=== PATIENT | female | born 1990 ===

== ENCOUNTER 2022-02-02 13:41 | Emergency (ER) | payer OTHER, MEDICAID, SELFPAY ==
[2022-02-02 16:19] VITALS: BP 109/55; PULSE 58; RESP 18; TEMP 36.4; O2SAT 100; BMI 27.3
[2022-02-02 17:10] LABS: UPreg QC Valid YES; Urine Pregnancy POSITIVE (NEGATIVE)
[2022-02-02 17:11] LABS: Appearance Urine Clear; Color Urine Yellow; Glucose Urine UA Negative (Negative); Leukocyte Esterase Urine Trace (Negative); Nitrite Urine Positive (Negative); UMIC TRIGGER UACC YES; Urine Blood Negative (Negative); Urine Ketones Negative (Negative); Urine Protein Negative (Neg-Trace)
[2022-02-02 17:13] LABS: Bacteria Urine 4+ (None Seen); Hyaline Casts Urine 0-2 /LPF (0-2); RBC Urine 0-2 /HPF (0-2); Squamous Epithelial Cell Urine 0-2 /HPF (0-2); UACC Culture Trigger YES; WBC Urine 0-5 /HPF (0-5)
== END 2022-02-03 00:55 | disposition left against medical advice (07) ==
PROVIDERS: Emergency Provider Emergency Medicine
DX: O26.891 Other specified pregnancy related conditions, first trimester (principal); R10.9 Unspecified abdominal pain; O23.41 Unspecified infection of urinary tract in pregnancy, first trimester; N39.0 Urinary tract infection, site not specified; B96.20 Unspecified Escherichia coli [E. coli] as the cause of diseases classified elsewhere; Z3A.01 Less than 8 weeks gestation of pregnancy
CPT/HCPCS: 81001; 81025; 87086; 87088; 87186; 99282

== ENCOUNTER 2022-06-19 14:04 | Emergency (ER) | payer OTHER, SELFPAY ==
--- NOTE | ~2022-06-19 | CT_ITS ---
EXAMINATION: CT FACIAL BONES WITH CONTRAST CLINICAL INFORMATION: Right nose question abscess question right orbital cellulitis COMPARISON: None TECHNIQUE: Axial images were obtained through the facial bones following the intravenous administration of 85 mL Omnipaque 350. Coronal and sagittal reconstructed images were generated. This CT examination was performed using dose optimization techniques as appropriate, variously including the following: *Automated exposure control *Adjustment of mA and/or kV according to patient size (this includes techniques or standardized protocols for targeted exams where dose is matched to indication/reason for exam; i.e. extremities or head) *Use of iterative reconstruction technique DLP: 435 mGy-cm FINDINGS: There is a small area of superficial nodular soft tissue thickening with rim enhancement in the subdermal soft tissues along the right aspect of the nose measuring approximately 0.8 x 0.5 x 0.6 cm in size. Finding is not entirely specific and could represent a inflamed sebaceous or epidermal inclusion cyst versus a very tiny abscess or developing abscess. No gas within the collection. There is mild adjacent soft tissue thickening and dermal enhancement consistent with inflammation. Globes and retro-orbital structures are intact. No appreciable preseptal inflammatory fat stranding. No postseptal inflammatory change. Major salivary glands and visualized thyroid gland are unremarkable. No cervical lymphadenopathy. Visualized carotid arteries and jugular veins enhance normally. Visualized intracranial contents grossly unremarkable, limited assessment. No acute facial bone fracture. Unerupted teeth in the maxilla noted. Periapical lucency surrounding the roots of the left second premolar and first molar tooth consistent with endodontal disease. Normal alignment of the TMJs. Trace mucosal thickening along the floor the left maxillary antrum. Paranasal sinuses otherwise normally aerated. Mastoid air cells and middle ear cavities normally aerated. CT/CT facial bones w IV con IMPRESSION: 1. Small 0.8 x 0.5 x 0.6 cm nodular focus of soft tissue thickening with rim enhancement along the right aspect of the nose. Finding is not not entirely specific and could represent a inflamed sebaceous or epidermal inclusion cyst versus a very small abscess or developing abscess. No gas within the collection. Mild surrounding soft tissue inflammation. Correlate with evidence of cellulitis on exam. 2. No CT evidence of preseptal or postseptal orbital cellulitis. 3. Periapical lucency surrounding the roots of the left second premolar and first molar teeth consistent with endodontal disease.
--- NOTE | 2022-06-19 14:28 | ED.GENADULT ---
HPI - General Adult General Chief complaint: General Medical <MICHI Grider Last Filed: 06/19/22 14:32> Stated complaint: periobital edema r eye <MICHI Grider Last Filed: 06/19/22 14:32> Time Seen by Provider: 06/19/22 16:05 <MICHI Grider Last Filed: 06/19/22 14:32> Source: patient <MICHI Calero Last Filed: 06/19/22 19:14> Mode of arrival: ambulatory <MICHI Calero Last Filed: 06/19/22 19:14> History of Present Illness HPI narrative: 32-year-old female with a past medical history of right-sided periorbital cellulitis treated with Doxycycline x5 days and Naproxen on 06/13/22 presenting to the ED complaining of persistent swelling and right-sided nasal tenderness. Patient reports compliance with previously prescribed antibiotics. Reports associated chills. Denies fever, drainage from area, pointing, epistaxis, ear pain, sore throat. Patient was seen at [facility] prior to arrival in to ED for further workup <MICHI Calero Last Filed: 06/19/22 19:14> Onset (ago): day(s) <MICHI Calero Last Filed: 06/19/22 19:14> Related Data Allergies/adverse reactions: Allergies Allergy/AdvReac Type Severity Reaction Status Date / Time No Known Allergies Allergy Verified 02/02/22 16:17 <MICHI Grider Last Filed: 06/19/22 14:32> Review of Systems Review of Systems: Constitutional: No Fever, No Chills ENT/Mouth: No Ear Pain, + Nasal Congestion, + Nasal Pain, No Hoarseness, No sore throat, No Rhinorrhea, No Swallowing Difficulty Cardiovascular: No Chest Pain, No SOB Respiratory: No Cough, No Sputum Gastrointestinal: No Nausea, No Vomiting, No Diarrhea, No Constipation, No Abdominal pain Musculoskeletal: No joint pain, No Myalgias, No Joint Swelling Skin: +Skin Lesions, No rash Neuro: No Weakness, No Numbness, No Paresthesias <MICHI Calero Last Filed: 06/19/22 19:14> Yes all other systems are reviewed and are negative <MICHI Calero - Last Filed: 06/19/22 19:14> Constitutional: Constitutional: Reports as per HPI <MICHI Calero - Last Filed: 06/19/22 19:14> [facility] Past Medical History Attestation statement: The following information was validated with the patient. <MICHI Calero - Last Filed: 06/19/22 19:14> Social History Social History: Social History Advance Directives: No Advance Directives Information Provided: Yes <MICHI Grider - Last Filed: 06/19/22 14:32> Physical Exam ED Vital Signs: Vital Signs - 24 hr 06/19/22 14:29 06/19/22 19:00 Temperature 96.7 F L 98.3 F Pulse Rate 58 62 Respiratory Rate 17 18 Blood Pressure 120/73 125/74 Pulse Oximetry 100 98 Oxygen Delivery Method Room Air Room Air BMI result Body Mass Index 26.7 <MICHI Grider - Last Filed: 06/19/22 14:32> Vital Signs - 24 hr 06/19/22 14:29 06/19/22 19:00 Temperature 96.7 F L 98.3 F Pulse Rate 58 62 Respiratory Rate 17 18 Blood Pressure 120/73 125/74 Pulse Oximetry 100 98 Oxygen Delivery Method Room Air Room Air BMI result Body Mass Index 26.7 <MICHI Calero - Last Filed: 06/19/22 19:14> Const General: cooperative, healthy appearing and no acute distress <MICHI Calero - Last Filed: 06/19/22 19:14> Orientation/consciousness: patient oriented x3 <MICHI Calero - Last Filed: 06/19/22 19:14> Limitations: no limitations <MICHI Calero - Last Filed: 06/19/22 19:14> HENMT Other: + small indurated abscesses noted to right side of nare with +ttp, no pointing, no erythema, no fluctuance. No intransal involvement. <MICHI Calero Last Filed: 06/19/22 19:14> Head: Yes normal to inspection and Yes atraumatic <Lala Solis [place] - Last Filed: 06/19/22 19:14> Ears: hearing grossly normal bilaterally and TM's normal bilaterally <Lala Solis [place] - Last Filed: 06/19/22 19:14> General nose exam: Normal septum present, no nasal discharge noted and no epistaxis <Lala Solis [facility] Last Filed: 06/19/22 19:14> Face and sinus: Yes normal facial exam <Lala Solis [facility] Last Filed: 06/19/22 19:14> Throat: Yes posterior oropharynx normal, Yes tonsils normal, Yes uvula midline, No peritonsillar mass, No uvula laterally displaced and No uvular edema <Lala Solis [place] - Last Filed: 06/19/22 19:14> Eyes Other: EOMI w/o pain <MICHI Calero - Last Filed: 06/19/22 19:14> General: appearance normal, both eyes and all related structures <Lala Solis [facility] Last Filed: 06/19/22 19:14> Conjunctivae: conjunctivae normal <Lala Solis [facility] Last Filed: 06/19/22 19:14> Sclerae: sclerae normal <Lala Solis [place] - Last Filed: 06/19/22 19:14> Pupils: Equal, round and reactive pupils present <MICHI Calero Last Filed: 06/19/22 19:14> EOM: EOMs intact bilaterally <MICHI Calero Last Filed: 06/19/22 19:14> Direct Ophthalmoscopy: normal light reflex <MICHI Calero Last Filed: 06/19/22 19:14> Neck Neck: Yes normal visual inspection, Yes no lymphadenopathy and Yes no meningeal signs <MICHI Calero Last Filed: 06/19/22 19:14> Resp Effort & Inspection: normal respiratory effort, not labored and no respiratory distress <MICHI Calero Last Filed: 06/19/22 19:14> Cardio Rate: regular rate <MICHI Calero - Last Filed: 06/19/22 19:14> Heart sounds: S1 normal heart sound present and S2 normal heart sound present <MICHI Calero - Last Filed: 06/19/22 19:14> GI Inspection: Yes normal to inspection <MICHI Calero - Last Filed: 06/19/22 19:14> Skin Rashes: no rashes <MICHI Calero - Last Filed: 06/19/22 19:14> Wounds: no wounds <MICHI Calero - Last Filed: 06/19/22 19:14> Neuro General: patient oriented x3, tone normal and no meningeal signs <MICHI Calreo - Last Filed: 06/19/22 19:14> Cranial nerves: Yes Equal, round and reactive pupils present <MICHI Calero - Last Filed: 06/19/22 19:14> Gait exam (Neuro): Normal gait present <MICHI Calero - Last Filed: 06/19/22 19:14> Extrem General: Yes normal to inspection <MICHI Calero - Last Filed: 06/19/22 19:14> Course Course Course Narrative: This is an RME: Additional HPI, ROS, PE not included below will be deferred to primary provider. 32-year-old female presenting with swelling to the right side of her nose since June 13 patient tells me this started off as a pimple, she popped it, since then has been having significant pain, swelling, she tells me it use to be localized to the right side of her face now improving however still significant pain and discomfort. Patient has images on her phone she shared with me. Physical examination there is a raised area to the right lateral aspect of nose that is tender to palpation, no fluctuance noted. Slight swelling to the right orbit. No pain with extraocular movements. Plan at this time is to obtain basic labs, blood cultures, lactic acid, CT of the facial bones with IV contrast to rule out abscess. <MICHI Grider - Last Filed: 06/19/22 14:32> This is an RME: Additional HPI, ROS, PE not included below will be deferred to primary provider. 32-year-old female presenting with swelling to the right side of her nose since June 13 patient tells me this started off as a pimple, she popped it, since then has been having significant pain, swelling, she tells me it use to be localized to the right side of her face now improving however still significant pain and discomfort. Patient has images on her phone she shared with me. Physical examination there is a raised area to the right lateral aspect of nose that is tender to palpation, no fluctuance noted. Slight swelling to the right orbit. No pain with extraocular movements. Plan at this time is to obtain basic labs, blood cultures, lactic acid, CT of the facial bones with IV contrast to rule out abscess. -1819-- no leukocytosis. Labs otherwise reassuring. COVID-19 negative. -1913--CT facial bones w IV con IMPRESSION: 1.? Small 0.8 x 0.5 x 0.6 cm nodular focus of soft tissue thickening with rim enhancement along the right aspect of the nose. Finding is not not entirely specific and could represent a inflamed sebaceous or epidermal inclusion cyst versus a very small abscess or developing abscess. No gas within the collection. Mild surrounding soft tissue inflammation. Correlate with evidence of cellulitis on exam. 2.? No CT evidence of preseptal or postseptal orbital cellulitis. 3.? Periapical lucency surrounding the roots of the left second premolar and first molar teeth consistent with endodontal disease. >> Will discharge patient home with Bactrim / Keflex and close dermatology/PCP follow-up. <MICHI Calero - Last Filed: 06/19/22 19:14> Medications Administered Discontinued Medications Generic Name Dose Route Start Last Admin Trade Name Alfonso PRN Reason Stop Dose Admin Sodium Chloride 500 mls @ 999 mls/hr 06/19/22 18:30 06/19/22 19:05 Ns IV 06/19/22 19:00 999 mls/hr .Q31M SALLY Administration Iohexol 100 ml 06/19/22 18:33 06/19/22 18:33 Iohexol 350 Mg/Ml 100 Ml Infus..Btl IV 06/19/22 18:34 85 ml ONCE ONE Administration Ketorolac Tromethamine 15 mg 06/19/22 17:55 06/19/22 18:17 Ketorolac Tromethamine 15 Mg/Ml Vial IVPUSH 06/19/22 17:56 15 mg ONCE ONE Administration <MICHI Grider - Last Filed: 06/19/22 14:32> Medications Administered Discontinued Medications Generic Name Dose Route Start Last Admin Trade Name Alfonso PRN Reason Stop Dose Admin Sodium Chloride 500 mls @ 999 mls/hr 06/19/22 18:30 06/19/22 19:05 Ns IV 06/19/22 19:00 999 mls/hr .Q31M SALLY Administration Iohexol 100 ml 06/19/22 18:33 06/19/22 18:33 Iohexol 350 Mg/Ml 100 Ml Infus..Btl IV 06/19/22 18:34 85 ml ONCE ONE Administration Ketorolac Tromethamine 15 mg 06/19/22 17:55 06/19/22 18:17 Ketorolac Tromethamine 15 Mg/Ml Vial IVPUSH 06/19/22 17:56 15 mg ONCE ONE Administration <MICHI Calero - Last Filed: 06/19/22 19:14> Medical Decision Making Medical Decision Making MDM Narrative: 32-year-old female with a past medical history of right-sided periorbital cellulitis treated with Doxycycline x5 days and Naproxen on 06/13/22 presenting to the ED complaining of persistent swelling and right-sided nasal tenderness. on exam vital signs stable, NAD/ nontoxic-appearing, physical exam as noted above with indurated tender area to right-sided near. No appreciable ocular, otic or intraoral involvement. Concern for indurated abscesses/underlying infection. Rule out deeper infection/cellulitis or tracking edema. Low suspicion for periorbital / orbital cellulitis plan: Labs, lactic/ blood cultures, UA, CT facial bones with IV contrast, re-evaluate Please refer to course for remaining clinical decision making, interpretation of labs/imaging results, and discussions with consultants and/or family members. <MICHI Calero Last Filed: 06/19/22 19:14> Differential Diagnosis Differential Diagnoses: The differential diagnosis associated with the presentation includes <MICHI Calero - Last Filed: 06/19/22 19:14> as above <MICHI Calero Last Filed: 06/19/22 19:14> Admission/Observation Consideration of admission/observation: Escalation of care including admission/observation considered <MICHI Calero - Last Filed: 06/19/22 19:14> Lab Data MDM Lab Attestation statement: I reviewed the patient's lab results. <MICHI Calero - Last Filed: 06/19/22 19:14> Result Diagrams: 06/19/22 16:55 06/19/22 16:55 <MICHI Grider - Last Filed: 06/19/22 14:32> Labs: Lab Results 06/19/22 06/19/22 06/19/22 Range/Units 16:36 16:55 16:55 WBC 7.1 (4.8-10.8) X10*3/uL RBC 4.68 (4.20-5.50) X10*6/uL Hgb 13.7 (12.0-16.0) g/dl Hct 42.9 (37.0-47.0) % MCV 91.7 (80.0-98.0) fL MCH 29.3 (27.0-33.0) pg MCHC 31.9 (31.0-35.0) g/dl RDW 13.3 (11.0-16.0) % Plt Count 238 (160-400) X10*3/uL MPV 9.9 (9.4-12.3) fL Immature Gran % (Auto) 0.3 (0.0-0.4) % Neut % (Auto) 69.6 (45-73) % Lymph % (Auto) 22.9 (20-40) % Dickinson % (Auto) 6.1 (2-11) % Eos % (Auto) 0.8 (0-4) % Baso % (Auto) 0.3 (0-2) % Lymph # (Auto) 1.6 (1.2-4.9) X10*3/uL Dickinson # (Auto) 0.4 (0.1-1.2) X10*3/uL Eos # (Auto) 0.1 (0.0-0.4) X10*3/uL Baso # (Auto) 0.0 (0.0-0.2) X10*3/uL Abs Immat Gran (auto) 0.02 (0.00-0.03) X10*3/uL Absolute Neuts (auto) 4.9 (2.0-8.3) x10*3/uL Absolute Nucleated RBC 0.000 (0.0-0.012) X10*3/uL Nucleated RBC % (auto) 0.0 (0.0-0.2) /100WBC Sodium (135-145) mmol/L Potassium (3.3-5.1) mmol/L Chloride (96-108) mmol/L Carbon Dioxide (22-29) mmol/L Anion Gap (12-20) BUN (9-16) mg/dL Creatinine (0.5-1.4) mg/dL Estim Creat Clear Calc Estimated GFR Random Glucose (60-115) mg/dL Lactic Acid 1.7 (0.5-2.0) mmol/L Calcium (8.4-10.2) mg/dL Magnesium (1.6-2.6) mg/dL Total Bilirubin (0.0-1.0) mg/dL AST (5-31) U/L ALT (0-31) U/L Alkaline Phosphatase (39-117) U/L Total Protein (6.5-8.0) g/dL Albumin (3.5-5.0) g/dL COVID-19 ([facility]) Negative (Negative) COVID-19 Clin Com See Note 06/19/22 Range/Units 16:55 WBC (4.8-10.8) X10*3/uL RBC (4.20-5.50) X10*6/uL Hgb (12.0-16.0) g/dl Hct (37.0-47.0) % MCV (80.0-98.0) fL MCH (27.0-33.0) pg MCHC (31.0-35.0) g/dl RDW (11.0-16.0) % Plt Count (160-400) X10*3/uL MPV (9.4-12.3) fL Immature Gran % (Auto) (0.0-0.4) % Neut % (Auto) (45-73) % Lymph % (Auto) (20-40) % Dickinson % (Auto) (2-11) % Eos % (Auto) (0-4) % Baso % (Auto) (0-2) % Lymph # (Auto) (1.2-4.9) X10*3/uL Dickinson # (Auto) (0.1-1.2) X10*3/uL Eos # (Auto) (0.0-0.4) X10*3/uL Baso # (Auto) (0.0-0.2) X10*3/uL Abs Immat Gran (auto) (0.00-0.03) X10*3/uL Absolute Neuts (auto) (2.0-8.3) x10*3/uL Absolute Nucleated RBC (0.0-0.012) X10*3/uL Nucleated RBC % (auto) (0.0-0.2) /100WBC Sodium 141 (135-145) mmol/L Potassium 4.5 (3.3-5.1) mmol/L Chloride 107 (96-108) mmol/L Carbon Dioxide 23 (22-29) mmol/L Anion Gap 16 (12-20) BUN 13 (9-16) mg/dL Creatinine 0.72 (0.5-1.4) mg/dL Estim Creat Clear Calc 122.1 Estimated GFR > 60 Random Glucose 79 (60-115) mg/dL Lactic Acid (0.5-2.0) mmol/L Calcium 9.5 (8.4-10.2) mg/dL Magnesium 1.9 (1.6-2.6) mg/dL Total Bilirubin 0.5 (0.0-1.0) mg/dL AST 16 (5-31) U/L ALT 12 (0-31) U/L Alkaline Phosphatase 54 (39-117) U/L Total Protein 7.2 (6.5-8.0) g/dL Albumin 4.3 (3.5-5.0) g/dL COVID-19 ([facility]) (Negative) COVID-19 Clin Com <MICHI Grider - Last Filed: 06/19/22 14:32> Lab Results 06/19/22 06/19/22 06/19/22 Range/Units 16:36 16:55 16:55 WBC 7.1 (4.8-10.8) X10*3/uL RBC 4.68 (4.20-5.50) X10*6/uL Hgb 13.7 (12.0-16.0) g/dl Hct 42.9 (37.0-47.0) % MCV 91.7 (80.0-98.0) fL MCH 29.3 (27.0-33.0) pg MCHC 31.9 (31.0-35.0) g/dl RDW 13.3 (11.0-16.0) % Plt Count 238 (160-400) X10*3/uL MPV 9.9 (9.4-12.3) fL Immature Gran % (Auto) 0.3 (0.0-0.4) % Neut % (Auto) 69.6 (45-73) % Lymph % (Auto) 22.9 (20-40) % Dickinson % (Auto) 6.1 (2-11) % Eos % (Auto) 0.8 (0-4) % Baso % (Auto) 0.3 (0-2) % Lymph # (Auto) 1.6 (1.2-4.9) X10*3/uL Dickinson # (Auto) 0.4 (0.1-1.2) X10*3/uL Eos # (Auto) 0.1 (0.0-0.4) X10*3/uL Baso # (Auto) 0.0 (0.0-0.2) X10*3/uL Abs Immat Gran (auto) 0.02 (0.00-0.03) X10*3/uL Absolute Neuts (auto) 4.9 (2.0-8.3) x10*3/uL Absolute Nucleated RBC 0.000 (0.0-0.012) X10*3/uL Nucleated RBC % (auto) 0.0 (0.0-0.2) /100WBC Sodium (135-145) mmol/L Potassium (3.3-5.1) mmol/L Chloride (96-108) mmol/L Carbon Dioxide (22-29) mmol/L Anion Gap (12-20) BUN (9-16) mg/dL Creatinine (0.5-1.4) mg/dL Estim Creat Clear Calc Estimated GFR Random Glucose (60-115) mg/dL Lactic Acid 1.7 (0.5-2.0) mmol/L Calcium (8.4-10.2) mg/dL Magnesium (1.6-2.6) mg/dL Total Bilirubin (0.0-1.0) mg/dL AST (5-31) U/L ALT (0-31) U/L Alkaline Phosphatase (39-117) U/L Total Protein (6.5-8.0) g/dL Albumin (3.5-5.0) g/dL COVID-19 ([facility]) Negative (Negative) COVID-19 Clin Com See Note 06/19/22 Range/Units 16:55 WBC (4.8-10.8) X10*3/uL RBC (4.20-5.50) X10*6/uL Hgb (12.0-16.0) g/dl Hct (37.0-47.0) % MCV (80.0-98.0) fL MCH (27.0-33.0) pg MCHC (31.0-35.0) g/dl RDW (11.0-16.0) % Plt Count (160-400) X10*3/uL MPV (9.4-12.3) fL Immature Gran % (Auto) (0.0-0.4) % Neut % (Auto) (45-73) % Lymph % (Auto) (20-40) % Dickinson % (Auto) (2-11) % Eos % (Auto) (0-4) % Baso % (Auto) (0-2) % Lymph # (Auto) (1.2-4.9) X10*3/uL Dickinson # (Auto) (0.1-1.2) X10*3/uL Eos # (Auto) (0.0-0.4) X10*3/uL Baso # (Auto) (0.0-0.2) X10*3/uL Abs Immat Gran (auto) (0.00-0.03) X10*3/uL Absolute Neuts (auto) (2.0-8.3) x10*3/uL Absolute Nucleated RBC (0.0-0.012) X10*3/uL Nucleated RBC % (auto) (0.0-0.2) /100WBC Sodium 141 (135-145) mmol/L Potassium 4.5 (3.3-5.1) mmol/L Chloride 107 (96-108) mmol/L Carbon Dioxide 23 (22-29) mmol/L Anion Gap 16 (12-20) BUN 13 (9-16) mg/dL Creatinine 0.72 (0.5-1.4) mg/dL Estim Creat Clear Calc 122.1 Estimated GFR > 60 Random Glucose 79 (60-115) mg/dL Lactic Acid (0.5-2.0) mmol/L Calcium 9.5 (8.4-10.2) mg/dL Magnesium 1.9 (1.6-2.6) mg/dL Total Bilirubin 0.5 (0.0-1.0) mg/dL AST 16 (5-31) U/L ALT 12 (0-31) U/L Alkaline Phosphatase 54 (39-117) U/L Total Protein 7.2 (6.5-8.0) g/dL Albumin 4.3 (3.5-5.0) g/dL COVID-19 ([facility]) (Negative) COVID-19 Clin Com <MICHI Calero - Last Filed: 06/19/22 19:14> Radiology Impression Discussion of test interpretation with radiology: I have reviewed the radiologist's reading. <MICHI Calero - Last Filed: 06/19/22 19:14> External Record Review External record reviewed: Office record <MICHI Calero - Last Filed: 06/19/22 19:14> Prescription Management I considered prescription management with: Pain Medication and Antibiotic <MICHI Calero - Last Filed: 06/19/22 19:14> Discharge Plan Discharge Clinical Impression: Abscess of nose <MICHI Grider - Last Filed: 06/19/22 14:32> Patient Disposition: Still a Patient <MICHI Grider Last Filed: 06/19/22 14:32> [facility] - Connor Field [Physician] - <MICHI Grider Last Filed: 06/19/22 14:32>
[2022-06-19 14:29] VITALS: BP 120/73; PULSE 58; RESP 17; TEMP 35.9; O2SAT 100; BMI 26.7
[2022-06-19 16:59] LABS: MANUAL DIFF FLAG NO
[2022-06-19 17:01] LABS: Basophils Percent Auto 0.3 % (0-2); Eosinophils Absolute Auto 0.1 X10*3/uL (0.0-0.4); Eosinophils Percent Auto 0.8 % (0-4); Hematocrit 42.9 % (37.0-47.0); Hemoglobin 13.7 g/dl (12.0-16.0); Imm Gran Abs Auto 0.02 X10*3/uL (0.00-0.03); Imm Gran Pct Auto 0.3 % (0.0-0.4); Lymphocytes Absolute Auto 1.6 X10*3/uL (1.2-4.9); Lymphocytes Percent Auto 22.9 % (20-40); Mean Corpuscular HGB Conc 31.9 g/dl (31.0-35.0); Mean Corpuscular Hemoglobin 29.3 pg (27.0-33.0); Mean Corpuscular Volume 91.7 fL (80.0-98.0); Mean Platelet Volume 9.9 fL (9.4-12.3); Monocytes Absolute Auto 0.4 X10*3/uL (0.1-1.2); Monocytes Percent Auto 6.1 % (2-11); Neutrophils Absolute Auto 4.9 x10*3/uL (2.0-8.3); Neutrophils Percent Auto 69.6 % (45-73); Platelet Count 238 X10*3/uL (160-400); Red Blood Count 4.68 X10*6/uL (4.20-5.50); Red Cell Distribution Width 13.3 % (11.0-16.0); White Blood Count 7.1 X10*3/uL (4.8-10.8)
[2022-06-19 17:02] LABS: COVID-19 Test Negative (Negative); IDNOW Serial# 9DB6401D
[2022-06-19 17:16] LABS: Lactic Acid 1.7 mmol/L (0.5-2.0)
[2022-06-19 17:21] LABS: Alanine Aminotransferase 12 U/L (0-31); Albumin Level 4.3 g/dL (3.5-5.0); Alkaline Phosphatase 54 U/L (39-117); Anion Gap 16 (12-20); Aspartate Amino Transferase 16 U/L (5-31); Bilirubin Total 0.5 mg/dL (0.0-1.0); Blood Urea Nitrogen 13 mg/dL (9-16); Calcium 9.5 mg/dL (8.4-10.2); Carbon Dioxide 23 mmol/L (22-29); Chloride 107 mmol/L (96-108); Creatinine Clr Calc Pharmacy 122.1; Estimated Glomerular Filt Rate > 60; Glucose Random 79 mg/dL (60-115); Magnesium 1.9 mg/dL (1.6-2.6); Potassium 4.5 mmol/L (3.3-5.1); Sodium 141 mmol/L (135-145); Total Protein 7.2 g/dL (6.5-8.0)
[2022-06-19] MEDS: Ketorolac Tromethamine 15 MG/ML VIAL IVPUSH (18:17)
[2022-06-19] MEDS: iohexoL 350 MG/ML 100 ML INFUS..BTL IV (18:33)
[2022-06-19 19:00] VITALS: BP 125/74; PULSE 62; RESP 18; TEMP 36.8; O2SAT 98
[2022-06-19] MEDS: 0.9 % Sodium Chloride 500 ML 999 ML IV (19:05)
== END 2022-06-19 19:59 | disposition home or self-care (01) ==
PROVIDERS: Physician Assistant; Emergency Provider Emergency Medicine
DX: J34.0 Abscess, furuncle and carbuncle of nose (principal); Z20.822 Contact with and (suspected) exposure to COVID-19
CPT/HCPCS: 36415; 70487; 80053; 83605; 83735; 85025; 87040; 87635; 96361; 96374; 99283; 99284; J1885; Q9967

== ENCOUNTER 2022-08-02 19:32 | Emergency (ER) | payer OTHER, SELFPAY ==
[2022-08-02 19:36] VITALS: BP 115/43; PULSE 66; RESP 16; TEMP 36.7; O2SAT 98; BMI 25.8
--- NOTE | 2022-08-02 19:36 | ED_ITS ---
HPI - General Adult General Chief complaint: Abdominal Pain <MICHI Calero - Last Filed: 08/02/22 19:44> Stated complaint: pelvic pain, back pain <MICHI Calero - Last Filed: 08/02/22 19:44> Time Seen by Provider: 08/02/22 22:25 <MICHI Calero - Last Filed: 08/02/22 19:44> Source: patient <Barbara Lucero MD - Last Filed: 08/02/22 22:33> Mode of arrival: ambulatory <Barbara Lucero MD - Last Filed: 08/02/22 22:33> Limitations: no limitations <Barbara Lucero MD - Last Filed: 08/02/22 22:33> History of Present Illness HPI narrative: Patient comes to the emergency room requesting a test. Patient states that earlier today she had a bit of abdominal cramping, no nausea vomiting diarrhea, patient states that she took a test at home and he was questionably positive. Therefore, patient came to emergency room to confirm with blood work. At this time, patient has no symptoms. <Barbara Lucero MD - Last Filed: 08/02/22 22:33> Related Data Home medications: Previous Rx's Medication Instructions Recorded cephalexin 500 mg capsule 500 mg PO QID 7 days #28 caps 06/19/22 ketorolac 10 mg tablet 10 mg PO TID PRN pain 5 days #15 06/19/22 tabs sulfamethoxazole 800 1 tab PO Q12H 7 days #14 tabs 06/19/22 mg-trimethoprim 160 mg tablet (Bactrim DS) <MICHI Calero - Last Filed: 08/02/22 19:44> Allergies/adverse reactions: Allergies Allergy/AdvReac Type Severity Reaction Status Date / Time No Known Allergies Allergy Verified 02/02/22 16:17 <MICHI Calero - Last Filed: 08/02/22 19:44> Review of Systems Review of Systems: Constitutional : No Weight loss, No Fever, No Chills, No Night Sweats, No Fatigue, No Malaise ENT/Mouth : No Hearing loss, No Ear Pain, No Nasal Congestion, No Sinus Pain, No Hoarseness, No sore throat, No Rhinorrhea, No Swallowing Difficulty Eyes: No Eye Pain, No Swelling, No Redness, No Foreign Body, No Discharge, No Vision Changes Cardiovascular : No Chest Pain, No SOB, No Dyspnea on Exertion, No Orthopnea, No Edema, No Palpitations Respiratory : No Cough, No Sputum, No Wheezing, No Smoke Exposure, No Dyspnea Gastrointestinal : No Nausea, No Vomiting, No Diarrhea, No Constipation, No abdominal Pain, mild suprapubic cramping, No Hematochezia, No Melena Genitourinary : no irregular bleeding, No Dysuria, No Urinary Frequency, No Hematuria, No Urinary Incontinence, No Urgency, No Flank Pain, No Urinary Flow Changes, No Hesitancy Musculoskeletal : No joint pain, No Myalgias, No Joint Swelling Skin : No Skin Lesions, No rash Neuro : No Weakness, No Numbness, No Paresthesias, No Loss of Consciousness, No Dizziness, No Headache Psych : No Anxiety/Panic, No Depression, No SI/HI/AH/VH, No Social Issues, Heme/Lymph: No Bruising, No Bleeding,No Lymphadenopathy Endocrine : No Polyuria, No Polydipsia, No Temperature Intolerance <Barbara Lucero MD - Last Filed: 08/02/22 22:33> [facility], [facility] Social History Social History: Social History Advance Directives: No Advance Directives Information Provided: No <MICHI Calero - Last Filed: 08/02/22 19:44> Physical Exam ED Vital Signs: Vital Signs - 24 hr 08/02/22 19:36 Temperature 98.1 F Pulse Rate 66 Respiratory Rate 16 Blood Pressure 115/43 L Pulse Oximetry 98 Oxygen Delivery Method Room Air BMI result Body Mass Index 25.8 <MICHI Calero - Last Filed: 08/02/22 19:44> Vital Signs - 24 hr 08/02/22 19:36 Temperature 98.1 F Pulse Rate 66 Respiratory Rate 16 Blood Pressure 115/43 L Pulse Oximetry 98 Oxygen Delivery Method Room Air BMI result Body Mass Index 25.8 <Barbara Lucero MD - Last Filed: 08/02/22 22:33> Const Other: Appearance: Alert. Oriented X3. No acute distress. Eyes: Pupils equal, round and reactive to light. ENT: Pharynx normal. Neck: Normal inspection. Neck supple. No lymph nodes noted. No crepitus CVS: Normal heart rate and rhythm. Pulses normal. Normal S1 and S2 Respiratory: No respiratory distress. Breath sounds normal. No Wheezing. No rales Abdomen: Soft and nontender. No rigidity. No distention. : Declined Skin: Skin warm and dry. Normal skin color. Normal skin turgor. Extremities: No lower extremity edema. No Lacerations. No Rash Neuro: Oriented X 3. No motor deficit. No sensory deficit. Moving all extremities. No slurred speech. CN 2 through 12 grossly intact Psych: calm, cooperative, normal affect <Barbara Lucero MD - Last Filed: 08/02/22 22:33> Course Course Course Narrative: RME--32yo F c/o pelvic pain, hematuria, and +home test today. LMP 07/16/22. Also reports mild dizziness. Denies abd pain, N/V, vaginal bleeding Labs, UA ordered <MICHI Calero - Last Filed: 08/02/22 19:44> Medical Decision Making Medical Decision Making MDM Narrative: -I discussed the labs with the patient, hCG quant is negative. -patient declined pelvic exam, states that her over is waiting for her outside and that her last chance of getting home. Patient apologized and respectfully declined the pelvic exam and requested to be discharged -patient states that she is asymptomatic. <Barbara Lucero MD - Last Filed: 08/02/22 22:33> Lab Data Result Diagrams: 08/02/22 20:41 08/02/22 20:41 <MICHI Calero - Last Filed: 08/02/22 19:44> Labs: Lab Results 08/02/22 08/02/22 08/02/22 Range/Units 20:41 20:41 20:41 WBC 6.8 (4.8-10.8) X10*3/uL RBC 4.42 (4.20-5.50) X10*6/uL Hgb 13.1 (12.0-16.0) g/dl Hct 40.5 (37.0-47.0) % MCV 91.6 (80.0-98.0) fL MCH 29.6 (27.0-33.0) pg MCHC 32.3 (31.0-35.0) g/dl RDW 12.7 (11.0-16.0) % Plt Count 249 (160-400) X10*3/uL MPV 9.7 (9.4-12.3) fL Immature Gran % (Auto) 0.1 (0.0-0.4) % Neut % (Auto) 52.3 (45-73) % Lymph % (Auto) 38.7 (20-40) % [place] % (Auto) 7.1 (2-11) % Eos % (Auto) 1.5 (0-4) % Baso % (Auto) 0.3 (0-2) % Lymph # (Auto) 2.6 (1.2-4.9) X10*3/uL [place] # (Auto) 0.5 (0.1-1.2) X10*3/uL Eos # (Auto) 0.1 (0.0-0.4) X10*3/uL Baso # (Auto) 0.0 (0.0-0.2) X10*3/uL Abs Immat Gran (auto) 0.01 (0.00-0.03) X10*3/uL Absolute Neuts (auto) 3.6 (2.0-8.3) x10*3/uL Absolute Nucleated RBC 0.000 (0.0-0.012) X10*3/uL Nucleated RBC % (auto) 0.0 (0.0-0.2) /100WBC Sodium 140 (135-145) mmol/L Potassium 4.2 (3.3-5.1) mmol/L Chloride 105 (96-108) mmol/L Carbon Dioxide 26 (22-29) mmol/L Anion Gap 13 (12-20) BUN 15 (9-16) mg/dL Creatinine 0.85 (0.5-1.4) mg/dL Estim Creat Clear Calc 101.8 Estimated GFR > 60 Random Glucose 94 (60-115) mg/dL Calcium 9.3 (8.4-10.2) mg/dL Total Bilirubin 0.3 (0.0-1.0) mg/dL Direct Bilirubin < 0.2 (0.0-0.5) mg/dL AST 16 (5-31) U/L ALT 10 (0-31) U/L Alkaline Phosphatase 53 (39-117) U/L Total Protein 7.1 (6.5-8.0) g/dL Albumin 4.4 (3.5-5.0) g/dL Lipase 49 (8-78) U/L Beta HCG, Quant < 2 mIU/mL Urine Color Yellow Urine Appearance Clear Urine pH 7.0 (5.0-9.0) Ur Specific [place] 1.015 (1.005-1.025) Urine Protein Negative (Neg-Trace) mg/dL Urine Glucose (UA) Negative (Negative) mg/dL Urine Ketones Negative (Negative) mg/dL Urine Blood Negative (Negative) Urine Nitrite Negative (Negative) Ur Leukocyte Esterase Negative (Negative) Urine Test (NEGATIVE) 08/02/22 Range/Units 20:41 WBC (4.8-10.8) X10*3/uL RBC (4.20-5.50) X10*6/uL Hgb (12.0-16.0) g/dl Hct (37.0-47.0) % MCV (80.0-98.0) fL MCH (27.0-33.0) pg MCHC (31.0-35.0) g/dl RDW (11.0-16.0) % Plt Count (160-400) X10*3/uL MPV (9.4-12.3) fL Immature Gran % (Auto) (0.0-0.4) % Neut % (Auto) (45-73) % Lymph % (Auto) (20-40) % [place] % (Auto) (2-11) % Eos % (Auto) (0-4) % Baso % (Auto) (0-2) % Lymph # (Auto) (1.2-4.9) X10*3/uL [place] # (Auto) (0.1-1.2) X10*3/uL Eos # (Auto) (0.0-0.4) X10*3/uL Baso # (Auto) (0.0-0.2) X10*3/uL Abs Immat Gran (auto) (0.00-0.03) X10*3/uL Absolute Neuts (auto) (2.0-8.3) x10*3/uL Absolute Nucleated RBC (0.0-0.012) X10*3/uL Nucleated RBC % (auto) (0.0-0.2) /100WBC Sodium (135-145) mmol/L Potassium (3.3-5.1) mmol/L Chloride (96-108) mmol/L Carbon Dioxide (22-29) mmol/L Anion Gap (12-20) BUN (9-16) mg/dL Creatinine (0.5-1.4) mg/dL Estim Creat Clear Calc Estimated GFR Random Glucose (60-115) mg/dL Calcium (8.4-10.2) mg/dL Total Bilirubin (0.0-1.0) mg/dL Direct Bilirubin (0.0-0.5) mg/dL AST (5-31) U/L ALT (0-31) U/L Alkaline Phosphatase (39-117) U/L Total Protein (6.5-8.0) g/dL Albumin (3.5-5.0) g/dL Lipase (8-78) U/L Beta HCG, Quant mIU/mL Urine Color Urine Appearance Urine pH (5.0-9.0) Ur Specific [place] (1.005-1.025) Urine Protein (Neg-Trace) mg/dL Urine Glucose (UA) (Negative) mg/dL Urine Ketones (Negative) mg/dL Urine Blood (Negative) Urine Nitrite (Negative) Ur Leukocyte Esterase (Negative) Urine Test NEGATIVE (NEGATIVE) <MICHI Calero - Last Filed: 08/02/22 19:44> Lab Results 08/02/22 08/02/22 08/02/22 Range/Units 20:41 20:41 20:41 WBC 6.8 (4.8-10.8) X10*3/uL RBC 4.42 (4.20-5.50) X10*6/uL Hgb 13.1 (12.0-16.0) g/dl Hct 40.5 (37.0-47.0) % MCV 91.6 (80.0-98.0) fL MCH 29.6 (27.0-33.0) pg MCHC 32.3 (31.0-35.0) g/dl RDW 12.7 (11.0-16.0) % Plt Count 249 (160-400) X10*3/uL MPV 9.7 (9.4-12.3) fL Immature Gran % (Auto) 0.1 (0.0-0.4) % Neut % (Auto) 52.3 (45-73) % Lymph % (Auto) 38.7 (20-40) % [place] % (Auto) 7.1 (2-11) % Eos % (Auto) 1.5 (0-4) % Baso % (Auto) 0.3 (0-2) % Lymph # (Auto) 2.6 (1.2-4.9) X10*3/uL [place] # (Auto) 0.5 (0.1-1.2) X10*3/uL Eos # (Auto) 0.1 (0.0-0.4) X10*3/uL Baso # (Auto) 0.0 (0.0-0.2) X10*3/uL Abs Immat Gran (auto) 0.01 (0.00-0.03) X10*3/uL Absolute Neuts (auto) 3.6 (2.0-8.3) x10*3/uL Absolute Nucleated RBC 0.000 (0.0-0.012) X10*3/uL Nucleated RBC % (auto) 0.0 (0.0-0.2) /100WBC Sodium 140 (135-145) mmol/L Potassium 4.2 (3.3-5.1) mmol/L Chloride 105 (96-108) mmol/L Carbon Dioxide 26 (22-29) mmol/L Anion Gap 13 (12-20) BUN 15 (9-16) mg/dL Creatinine 0.85 (0.5-1.4) mg/dL Estim Creat Clear Calc 101.8 Estimated GFR > 60 Random Glucose 94 (60-115) mg/dL Calcium 9.3 (8.4-10.2) mg/dL Total Bilirubin 0.3 (0.0-1.0) mg/dL Direct Bilirubin < 0.2 (0.0-0.5) mg/dL AST 16 (5-31) U/L ALT 10 (0-31) U/L Alkaline Phosphatase 53 (39-117) U/L Total Protein 7.1 (6.5-8.0) g/dL Albumin 4.4 (3.5-5.0) g/dL Lipase 49 (8-78) U/L Beta HCG, Quant < 2 mIU/mL Urine Color Yellow Urine Appearance Clear Urine pH 7.0 (5.0-9.0) Ur Specific [place] 1.015 (1.005-1.025) Urine Protein Negative (Neg-Trace) mg/dL Urine Glucose (UA) Negative (Negative) mg/dL Urine Ketones Negative (Negative) mg/dL Urine Blood Negative (Negative) Urine Nitrite Negative (Negative) Ur Leukocyte Esterase Negative (Negative) Urine Test (NEGATIVE) 08/02/22 Range/Units 20:41 WBC (4.8-10.8) X10*3/uL RBC (4.20-5.50) X10*6/uL Hgb (12.0-16.0) g/dl Hct (37.0-47.0) % MCV (80.0-98.0) fL MCH (27.0-33.0) pg MCHC (31.0-35.0) g/dl RDW (11.0-16.0) % Plt Count (160-400) X10*3/uL MPV (9.4-12.3) fL Immature Gran % (Auto) (0.0-0.4) % Neut % (Auto) (45-73) % Lymph % (Auto) (20-40) % [place] % (Auto) (2-11) % Eos % (Auto) (0-4) % Baso % (Auto) (0-2) % Lymph # (Auto) (1.2-4.9) X10*3/uL [place] # (Auto) (0.1-1.2) X10*3/uL Eos # (Auto) (0.0-0.4) X10*3/uL Baso # (Auto) (0.0-0.2) X10*3/uL Abs Immat Gran (auto) (0.00-0.03) X10*3/uL Absolute Neuts (auto) (2.0-8.3) x10*3/uL Absolute Nucleated RBC (0.0-0.012) X10*3/uL Nucleated RBC % (auto) (0.0-0.2) /100WBC Sodium (135-145) mmol/L Potassium (3.3-5.1) mmol/L Chloride (96-108) mmol/L Carbon Dioxide (22-29) mmol/L Anion Gap (12-20) BUN (9-16) mg/dL Creatinine (0.5-1.4) mg/dL Estim Creat Clear Calc Estimated GFR Random Glucose (60-115) mg/dL Calcium (8.4-10.2) mg/dL Total Bilirubin (0.0-1.0) mg/dL Direct Bilirubin (0.0-0.5) mg/dL AST (5-31) U/L ALT (0-31) U/L Alkaline Phosphatase (39-117) U/L Total Protein (6.5-8.0) g/dL Albumin (3.5-5.0) g/dL Lipase (8-78) U/L Beta HCG, Quant mIU/mL Urine Color Urine Appearance Urine pH (5.0-9.0) Ur Specific [place] (1.005-1.025) Urine Protein (Neg-Trace) mg/dL Urine Glucose (UA) (Negative) mg/dL Urine Ketones (Negative) mg/dL Urine Blood (Negative) Urine Nitrite (Negative) Ur Leukocyte Esterase (Negative) Urine Test NEGATIVE (NEGATIVE) <Barbara Lucero MD - Last Filed: 08/02/22 22:33> Discharge Plan Discharge Clinical Impression: Negative test, Suprapubic cramping <MICHI Calero - Last Filed: 08/02/22 19:44> Patient Disposition: Home, Self-Care <MICHI Calero - Last Filed: 08/02/22 19:44> Instructions: Normal Exam (ED) <MICHI Calero - Last Filed: 08/02/22 19:44> Additional Instructions: Please follow-up with your primary care physician tomorrow. If you have any worsening or new symptoms, please return to the emergency room or call 911 <MICHI Calero - Last Filed: 08/02/22 19:44> Prescriptions: No Action ketorolac 10 mg tablet 10 mg PO TID PRN (Reason: pain) 5 Days Qty: 15 0RF sulfamethoxazole-trimethoprim [Bactrim DS] 800-160 mg tablet 1 tab PO Q12H 7 Days Qty: 14 0RF cephalexin 500 mg capsule 500 mg PO QID 7 Days Qty: 28 0RF <MICHI Calero - Last Filed: 08/02/22 19:44>
[2022-08-02 21:01] LABS: MANUAL DIFF FLAG NO
[2022-08-02 21:02] LABS: Basophils Percent Auto 0.3 % (0-2); Eosinophils Absolute Auto 0.1 X10*3/uL (0.0-0.4); Eosinophils Percent Auto 1.5 % (0-4); Hematocrit 40.5 % (37.0-47.0); Hemoglobin 13.1 g/dl (12.0-16.0); Imm Gran Abs Auto 0.01 X10*3/uL (0.00-0.03); Imm Gran Pct Auto 0.1 % (0.0-0.4); Lymphocytes Absolute Auto 2.6 X10*3/uL (1.2-4.9); Lymphocytes Percent Auto 38.7 % (20-40); Mean Corpuscular HGB Conc 32.3 g/dl (31.0-35.0); Mean Corpuscular Hemoglobin 29.6 pg (27.0-33.0); Mean Corpuscular Volume 91.6 fL (80.0-98.0); Mean Platelet Volume 9.7 fL (9.4-12.3); Monocytes Absolute Auto 0.5 X10*3/uL (0.1-1.2); Monocytes Percent Auto 7.1 % (2-11); Neutrophils Absolute Auto 3.6 x10*3/uL (2.0-8.3); Neutrophils Percent Auto 52.3 % (45-73); Platelet Count 249 X10*3/uL (160-400); Red Blood Count 4.42 X10*6/uL (4.20-5.50); Red Cell Distribution Width 12.7 % (11.0-16.0); White Blood Count 6.8 X10*3/uL (4.8-10.8)
[2022-08-02 21:08] LABS: Appearance Urine Clear; Color Urine Yellow; Glucose Urine UA Negative (Negative); Leukocyte Esterase Urine Negative (Negative); Nitrite Urine Negative (Negative); Specific Gravity - Urine 1.015 (1.005-1.025); Urine Blood Negative (Negative); Urine Ketones Negative (Negative); Urine Protein Negative (Neg-Trace)
[2022-08-02 21:11] LABS: UPreg QC Valid YES; Urine Pregnancy NEGATIVE (NEGATIVE)
[2022-08-02 21:30] LABS: Alanine Aminotransferase 10 U/L (0-31); Albumin Level 4.4 g/dL (3.5-5.0); Alkaline Phosphatase 53 U/L (39-117); Anion Gap 13 (12-20); Aspartate Amino Transferase 16 U/L (5-31); Bilirubin Direct < 0.2 mg/dL (0.0-0.5); Bilirubin Total 0.3 mg/dL (0.0-1.0); Blood Urea Nitrogen 15 mg/dL (9-16); Calcium 9.3 mg/dL (8.4-10.2); Carbon Dioxide 26 mmol/L (22-29); Chloride 105 mmol/L (96-108); Creatinine Clr Calc Pharmacy 101.8; Estimated Glomerular Filt Rate > 60; Glucose Random 94 mg/dL (60-115); Lipase 49 U/L (8-78); Potassium 4.2 mmol/L (3.3-5.1); Sodium 140 mmol/L (135-145); Total Protein 7.1 g/dL (6.5-8.0)
[2022-08-02 21:34] LABS: HCG Quantitative < 2 mIU/mL
== END 2022-08-02 22:41 | disposition home or self-care (01) ==
PROVIDERS: Physician Assistant; Emergency Provider Emergency Medicine
DX: R10.30 Lower abdominal pain, unspecified (principal); Z32.02 Encounter for pregnancy test, result negative
CPT/HCPCS: 36415; 80048; 80076; 81003; 81025; 83690; 84702; 85025; 99282; 99283

== ENCOUNTER 2024-01-22 12:47 | Outpatient (REF) | payer OTHER, SELFPAY ==
[2024-01-22 13:52] LABS: MANUAL DIFF FLAG NO
[2024-01-22 14:03] LABS: Basophils Percent Auto 0.4 % (0-2); Eosinophils Absolute Auto 0.1 X10*3/uL (0.0-0.4); Eosinophils Percent Auto 1.4 % (0-4); Hematocrit 39.2 % (37.0-47.0); Hemoglobin 12.7 g/dl (12.0-16.0); Imm Gran Abs Auto 0.03 X10*3/uL (0.00-0.03); Imm Gran Pct Auto 0.5 % (0.0-0.4); Lymphocytes Absolute Auto 1.7 X10*3/uL (1.2-4.9); Lymphocytes Percent Auto 30.4 % (20-40); Mean Corpuscular HGB Conc 32.4 g/dl (31.0-35.0); Mean Corpuscular Hemoglobin 29.1 pg (27.0-33.0); Mean Corpuscular Volume 89.9 fL (80.0-98.0); Mean Platelet Volume 10.1 fL (9.4-12.3); Monocytes Absolute Auto 0.3 X10*3/uL (0.1-1.2); Neutrophils Absolute Auto 3.5 x10*3/uL (2.0-8.3); Neutrophils Percent Auto 61.3 % (45-73); Platelet Count 289 X10*3/uL (160-400); Red Blood Count 4.36 X10*6/uL (4.20-5.50); Red Cell Distribution Width 13.2 % (11.0-16.0); White Blood Count 5.7 X10*3/uL (4.8-10.8)
[2024-01-22 14:41] LABS: Anion Gap 14 (12-20); Blood Urea Nitrogen 8 mg/dL (9-16); Calcium 9.7 mg/dL (8.4-10.2); Carbon Dioxide 25 mmol/L (22-29); Chloride 104 mmol/L (96-108); Estimated Glomerular Filt Rate > 60; Glucose Random 95 mg/dL (60-115); Sodium 139 mmol/L (135-145)
[2024-01-22 15:00] LABS: TSH reflex Free T4 1.74 uIU/mL (0.32-4.0)
== END 2024-01-22 12:48 | disposition home or self-care (01) ==
LOC: HO.HHCL 12:47
PROVIDERS: Visit Provider Nurse Practitioner Primary Care
DX: R42 Dizziness and giddiness (principal)
CPT/HCPCS: 36415; 80048; 84443; 85025

== ENCOUNTER 2024-02-05 15:47 | Outpatient (REF) | payer OTHER, SELFPAY ==
--- NOTE | ~2024-02-05 | XR_ITS ---
EXAMINATION: 2 views of the right tibia-fibula CLINICAL INFORMATION: Left leg pain COMPARISON: None. TECHNIQUE: 2 views of the left lower leg FINDINGS: Postoperative changes with amarilis and screw fixation crossing a prior tibia fracture. Hardware intact. Callus formation and minimal lucency in the diaphysis of the tibia likely related to old healed or mostly healed fracture. Additional deformity of the distal fibula compatible with a healed or healing fracture. Minimal lucency remaining along the area of the fracture XR/XR tibia fibula LT 2V IMPRESSION: Healed or healing fractures of the distal tibia and fibula. Hardware intact. No acute abnormality. No evidence of hardware failure. Electronically signed by: Yonatan Freeman MD 02/05/2024 08:47 PM EDT
== END 2024-02-05 15:48 | disposition home or self-care (01) ==
LOC: HO.XRAY 15:47
PROVIDERS: PCP Family Medicine; Visit Provider Nurse Practitioner Primary Care
DX: M79.605 Pain in left leg (principal); M79.89 Other specified soft tissue disorders
CPT/HCPCS: 73590

== ENCOUNTER 2024-02-09 16:05 | Outpatient (REF) | payer OTHER, SELFPAY ==
--- NOTE | ~2024-02-09 | US_ITS ---
EXAMINATION: ULTRASOUND LEFT LEG CLINICAL INFORMATION: Painful soft tissue mass, left ly. COMPARISON: None available. TECHNIQUE: High frequency linear ultrasound transducer was used to examine the area of clinical concern. FINDINGS: No abnormality is seen. No mass, no adenopathy, no fluid collection. US/US extremity nonvascular IMPRESSION: No abnormality is seen. Electronically signed by: Yoni Hahn MD 04/14/2024 10:57 PM [facility]
== END 2024-02-09 16:06 | disposition home or self-care (01) ==
LOC: HO.US 16:05
PROVIDERS: PCP Family Medicine; Visit Provider Nurse Practitioner Primary Care
DX: M79.606 Pain in leg, unspecified (principal)
CPT/HCPCS: 76882

== ENCOUNTER 2024-02-20 10:15 | Emergency (ER) | payer OTHER, SELFPAY ==
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
[2024-02-20 10:22] VITALS: BP 110/62; PULSE 66; RESP 16; TEMP 36.4; O2SAT 98; BMI 30.9
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
[2024-02-20 10:55] VITALS: BP 114/76; PULSE 58; RESP 16; TEMP 36.5; O2SAT 99
[2024-02-20] MEDS: Acetaminophen 325 MG TABLET 975 MG PO (11:44)
[2024-02-20 12:45] VITALS: BP 114/76; PULSE 58; RESP 16; TEMP 36.5; O2SAT 99
== END 2024-02-20 12:45 | disposition home or self-care (01) ==
PROVIDERS: Emergency Provider Emergency Medicine; PCP Family Medicine
DX: S16.1XXA Strain of muscle, fascia and tendon at neck level, initial encounter (principal); Y04.2XXA Assault by strike against or bumped into by another person, initial encounter; Z72.89 Other problems related to lifestyle; Z63.0 Problems in relationship with spouse or partner; Y93.89 Activity, other specified; Y92.009 Unspecified place in unspecified non-institutional (private) residence as the place of occurrence of the external cause; Y99.9 Unspecified external cause status
CPT/HCPCS: 70450; 72125; 99284

== ENCOUNTER 2024-02-22 09:54 | Emergency (ER) | payer OTHER, SELFPAY ==
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
[2024-02-22 10:04] VITALS: BP 109/43; PULSE 73; RESP 20; TEMP 37; O2SAT 97; BMI 25.1
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
[2024-02-22 13:08] VITALS: BP 109/43; PULSE 73; RESP 20; TEMP 37; O2SAT 97
== END 2024-02-22 13:11 | disposition left against medical advice (07) ==
PROVIDERS: Emergency Provider Emergency Medicine; PCP Family Medicine
DX: S13.9XXA Sprain of joints and ligaments of unspecified parts of neck, initial encounter (principal); M54.2 Cervicalgia; M25.512 Pain in left shoulder; R51.9 Headache, unspecified; Y08.89XA Assault by other specified means, initial encounter; Y93.89 Activity, other specified; Y92.89 Other specified places as the place of occurrence of the external cause; Y99.8 Other external cause status
CPT/HCPCS: 70450; 99282; 99284

== ENCOUNTER 2024-02-26 08:20 | Outpatient (REF) | payer OTHER, SELFPAY ==
--- NOTE | ~2024-02-26 | XR_ITS ---
EXAMINATION: Left tibia-fibula series CLINICAL INFORMATION: Pain in leg COMPARISON: X-ray of the left tibia-fibula February 05, 2024 TECHNIQUE: AP and lateral views of the left tibia-fibula FINDINGS: Postoperative changes redemonstrated with the tibial amarilis and proximal distal screws redemonstrated. Hardware intact. The amarilis crosses through an area of old healed/near completely healed tibia fracture. There is some persistent lucency along the fracture line. Its hypertrophic changes of the cortex compatible with callus. Deformity distal fibula compatible with old healed fracture. XR/XR tibia fibula LT 2V IMPRESSION: Old healed/near completely healed fracture of the distal tibia and fibula. No change compared with the prior x-ray. Electronically signed by: Yonatan Freeman MD 03/03/2024 04:44 PM EDT RP
== END 2024-02-26 08:21 | disposition home or self-care (01) ==
LOC: HO.HOSX 08:20
PROVIDERS: Visit Provider Physician Assistant
DX: M79.605 Pain in left leg (principal); T81.328A Disruption or dehiscence of closure of other specified internal operation (surgical) wound, initial encounter
CPT/HCPCS: 73590; 99202

== ENCOUNTER 2024-02-26 08:22 | Outpatient (AMB) | payer OTHER, SELFPAY ==
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
[2024-02-26 08:31] VITALS: BMI 27.2
== END 2024-02-26 09:23 | disposition home or self-care (01) ==
LOC: HO.HOS 08:22
PROVIDERS: PCP Family Medicine; Visit Provider Physician Assistant
DX: T81.328A Disruption or dehiscence of closure of other specified internal operation (surgical) wound, initial encounter (principal)
CPT/HCPCS: 99203

== ENCOUNTER 2024-03-11 14:52 | Outpatient (REF) | payer OTHER, SELFPAY ==
[2024-03-14 11:49] LABS: HPV 16,18/45 See PAP report
[2024-03-16 22:29] LABS: C. trachomatis RNA TMA NOT DETECTED (NOT DETECTED); N. gonorrhoeae RNA TMA NOT DETECTED (NOT DETECTED)
[2024-03-17 01:19] LABS: Trichomonas (NAAT) NOT DETECTED (NOT DETECTED)
== END 2024-03-11 14:53 | disposition home or self-care (01) ==
LOC: HO.HHCLNP 14:52
PROVIDERS: Visit Provider Family Medicine
DX: Z12.4 Encounter for screening for malignant neoplasm of cervix (principal)
CPT/HCPCS: 87491; 87591; 87624; 87661; 88175

== ENCOUNTER 2024-05-06 13:12 | Emergency (ER) | payer MEDICAID, OTHER, SELFPAY ==
--- NOTE | ~2024-05-06 | CT_ITS ---
EXAMINATION: CT HEAD WITHOUT CONTRAST CT CERVICAL SPINE WITHOUT CONTRAST CLINICAL INFORMATION: Trauma. COMPARISON: CT head and cervical spine dated 02/20/2024. TECHNIQUE: Contiguous axial imaging was performed from the skull base to vertex without intravenous administration of contrast. Contiguous axial CT images of the cervical spine were obtained without contrast. Sagittal and coronal reformats were provided and reviewed. This CT examination was performed using dose optimization techniques as appropriate, variously including the following: *Automated exposure control *Adjustment of mA and/or kV according to patient size (this includes techniques or standardized protocols for targeted exams where dose is matched to indication/reason for exam; i.e. extremities or head) *Use of iterative reconstruction technique DLP: 1213 mGy-cm FINDINGS: HEAD: There is no evidence of acute intracranial hemorrhage or territorial infarction. No abnormal mass effect or midline shift is seen. Howard to white matter differentiation is well preserved. No extra-axial fluid collections are identified. The ventricles are normal in size. There is no abnormal attenuation within the brain parenchyma. The osseous structures and soft tissues are normal. The mastoid air cells and visualized portions of the paranasal sinuses are well aerated. CERVICAL SPINE: Reversal of the normal cervical lordosis which may be positional related muscular spasm. No acute fracture or subluxation. No loss of vertebral body or intervertebral disc height. Unremarkable facet joints. No lytic or blastic osseous lesion. Unremarkable prevertebral soft tissues. No abnormal soft tissue mass or fluid collection. Thyroid within normal limits. Visualized lung apices are clear. No significant central canal or neural foraminal stenosis. CT/CT cervical spine wo IV con IMPRESSION: HEAD: No acute intracranial hemorrhage or mass effect. CERVICAL SPINE: No acute fracture or subluxation. Reversal of the normal cervical lordosis which may be positional related muscular spasm. Electronically signed by: Pratik Goodson MD 05/06/2024 05:08 PM [facility]
--- NOTE | ~2024-05-06 | CT_ITS ---
EXAMINATION: CT HEAD WITHOUT CONTRAST CT CERVICAL SPINE WITHOUT CONTRAST CLINICAL INFORMATION: Trauma. COMPARISON: CT head and cervical spine dated 02/20/2024. TECHNIQUE: Contiguous axial imaging was performed from the skull base to vertex without intravenous administration of contrast. Contiguous axial CT images of the cervical spine were obtained without contrast. Sagittal and coronal reformats were provided and reviewed. This CT examination was performed using dose optimization techniques as appropriate, variously including the following: *Automated exposure control *Adjustment of mA and/or kV according to patient size (this includes techniques or standardized protocols for targeted exams where dose is matched to indication/reason for exam; i.e. extremities or head) *Use of iterative reconstruction technique DLP: 1213 mGy-cm FINDINGS: HEAD: There is no evidence of acute intracranial hemorrhage or territorial infarction. No abnormal mass effect or midline shift is seen. Howard to white matter differentiation is well preserved. No extra-axial fluid collections are identified. The ventricles are normal in size. There is no abnormal attenuation within the brain parenchyma. The osseous structures and soft tissues are normal. The mastoid air cells and visualized portions of the paranasal sinuses are well aerated. CERVICAL SPINE: Reversal of the normal cervical lordosis which may be positional related muscular spasm. No acute fracture or subluxation. No loss of vertebral body or intervertebral disc height. Unremarkable facet joints. No lytic or blastic osseous lesion. Unremarkable prevertebral soft tissues. No abnormal soft tissue mass or fluid collection. Thyroid within normal limits. Visualized lung apices are clear. No significant central canal or neural foraminal stenosis. CT/CT head/brain wo IV con IMPRESSION: HEAD: No acute intracranial hemorrhage or mass effect. CERVICAL SPINE: No acute fracture or subluxation. Reversal of the normal cervical lordosis which may be positional related muscular spasm. Electronically signed by: Pratik Goodson MD 05/06/2024 05:08 PM [facility]
[2024-05-06 13:21] VITALS: BP 100/64; BP 122/80; PULSE 65; PULSE 78; RESP 18; TEMP 36.7; O2SAT 100; O2SAT 98; BMI 23.5
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
[2024-05-06 13:38] VITALS: BP 100/64; PULSE 66; RESP 18; TEMP 36.7; O2SAT 99
[2024-05-06] MEDS: Acetaminophen 325 MG TABLET 975 MG PO (14:35)
[2024-05-06 15:16] LABS: HCG Quantitative < 2 mIU/mL
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
--- NOTE | 2024-05-06 16:34 | PC.NURSE ---
NAD. resting quietly. on phone
[2024-05-06 16:45] VITALS: BP 107/58; PULSE 61; RESP 14; TEMP 36.6; O2SAT 98
[2024-05-06] MEDS: Bacitracin Oint 0.9 GM PACKET 1 APPL TOPICAL (17:52)
[2024-05-06 17:55] VITALS: BP 107/58; PULSE 61; RESP 14; TEMP 36.6; O2SAT 98
== END 2024-05-06 17:56 | disposition home or self-care (01) ==
PROVIDERS: Emergency Medicine; Emergency Provider Emergency Medicine; PCP Family Medicine
DX: S13.4XXA Sprain of ligaments of cervical spine, initial encounter (principal); R51.9 Headache, unspecified; M54.2 Cervicalgia; V43.52XA Car driver injured in collision with other type car in traffic accident, initial encounter; Y93.89 Activity, other specified; Y92.488 Other paved roadways as the place of occurrence of the external cause; Y99.8 Other external cause status
CPT/HCPCS: 36415; 70450; 72125; 84702; 99283; 99284

== ENCOUNTER 2024-07-16 16:50 | Emergency (ER) | payer MEDICAID, OTHER, SELFPAY ==
--- NOTE | ~2024-07-16 | XR_ITS ---
CLINICAL HISTORY: sob 2 view chest x-ray Comparison: None available Findings: No consolidation or effusion. Borderline low lung volumes. No pneumothorax Heart size is normal. Small Schmorl's nodes of the imaged thoracic vertebrae. IMPRESSION: No consolidation This document has been electronically signed by: Dudley Alexanrda MD on 07/16/2024 18:49:50
[2024-07-16 17:02] VITALS: BP 138/80; PULSE 77; RESP 20; TEMP 37; O2SAT 99; BMI 30.7
--- NOTE | 2024-07-16 17:05 | ED_ITS ---
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 She states symptoms began after running into an ex- partner whom she has a restraining order on. When she saw him, she lost her strength and began to feel short of breath. Since this time, reports intermittent shortness of breath. Denies assoc chest pain or palpitations. Denies hx of anxiety. Denies recent URI. Denies fever, chills, sore throat, N/V. Related Data Previous Rx's ?Medication ?Instructions ?Recorded cephalexin 500 mg capsule 500 mg PO QID 7 days #28 caps 06/19/22 ketorolac 10 mg tablet 10 mg PO TID PRN pain 5 days #15 06/19/22 tabs sulfamethoxazole 800 1 tab PO Q12H 7 days #14 tabs 06/19/22 mg-trimethoprim 160 mg tablet (Bactrim DS) cyclobenzaprine 5 mg tablet 5 mg PO TID PRN muscle spasm #10 02/20/24 tabs lidocaine 5 % topical patch 1 patch topical DAILY #15 ea 02/20/24 ondansetron 4 mg disintegrating 4 mg PO Q8H PRN nausea and 02/20/24 tablet vomiting #9 tabs Allergies Allergy/AdvReac Type Severity Reaction Status Date / Time No Known Allergies Allergy Verified 07/16/24 17:05 Review of Systems 2 Review of Systems: Yes all other systems are reviewed and are negative [facility] Past Medical History Attestation statement: The following information was validated with the patient. 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 Skin: Warm, dry, intact. No rashes or lesions. Head: Normocephalic, atraumatic. EENT: Hearing is intact b/l. Conjunctiva clear. PERRLA. EOM intact. Moist mucous membranes.? Cardiac: Chest wall symmetric. RRR. no jvd. Lungs: Normal respiratory effort without accessory muscle use. CTA bilaterally. No rales, rhonchi, or wheezes.? Abdomen: Soft, non-tender, non-distended. No rebound tenderness or guarding Ext: Upper and lower extremities atraumatic, without tenderness, deformity, swelling or erythema. no calf tenderness. Neuro: AOx3. Normal speech. Ambulating with steady gait. Course Course Course Narrative: This is a Rapid Medical Examination (RME) performed by Dirk Walsh PA-C in triage. Full HPI, ROS, assessment and treatment plan per primary provider in the Main ED. 34 yo female here here for eval of SOB. reports on seeing an ex partner on Thursday whom she has a restraining order against. She began to feel short of breath, lost her strength and couldnt speak. this resolved. now having continued sob. Plan: labs, ekg, cxr Reevaluation(s) Reevaluation #1: 2041 -- CBC without leukocytosis or left shift. No anemia. H&H stable. Chemistry without acute electrolyte abnormality requiring intervention. No BRITT. Liver function normal. Troponin undetectable. Beta quant undetectable, not . Negative COVID, flu, RSV. Chest x-ray normal. No pneumonia or effusion. EKG showing normal sinus rhythm, rate of 68 beats per minute, no acute ischemic changes or ST elevations. > workup unremarkable. Unclear etiology of symptoms. Question anxiety versus panic attack. I do not have concern for PE as PERC score is 0 and she has no risk factors. Advised to follow up with PCP/cardiology. Referral provided. Patient has remained stable throughout ED visit today. Discussed worrisome signs and symptoms and when to return to the ED. All questions answered at this time. Patient is agreeable with disposition and stable for discharge. Medical Decision Making Medical Decision Making [facility] Narrative: 34 year old [place]serrat[place] speaking female presents to the ED today for evaluation of shortness of breath x5 days. Vital signs stable. Not hypoxic or tachycardic. She is nontoxic appearing in no acute distress. Exam is quite benign. No respiratory distress. Lungs are CTA bilaterally. RRR. No JVD or pitting edema. No calf tenderness bilaterally. Minimal CAD risk factors (including age). Exam without evidence of volume overload. EKG without signs of active ischemia. HEART score: .? Given the timing of pain to ED presentation, plan to send single troponin to evaluate for NSTEMI. Differential includes anemia, electrolyte abnormality, dehydration, anxiety, panic attack, pneumonia, viral syndrome Presentation not consistent with acute PE (PERC negative), pneumothorax, thoracic aortic dissection, cardiac effusion or tamponade. Plan: labs, troponin, EKG, CXR, reassessment Differential Diagnosis Differential Diagnoses: The differential diagnosis associated with the presentation includes as above. Admission/Observation not indicated Lab Data [facility] Lab Attestation statement: I reviewed the patient's lab results. As above 07/16/24 17:18 07/16/24 17:17 Labs: Lab Results 07/16/24 07/16/24 Range/Units 17:17 17:18 WBC 7.2 (4.8-10.8) X10*3/uL RBC 4.22 (4.20-5.50) X10*6/uL Hgb 12.6 (12.0-16.0) g/dl Hct 36.9 L (37.0-47.0) % MCV 87.4 (80.0-98.0) fL MCH 29.9 (27.0-33.0) pg MCHC 34.1 (31.0-35.0) g/dl RDW 13.2 (11.0-16.0) % Plt Count 264 (160-400) X10*3/uL MPV 9.6 (9.4-12.3) fL Immature Gran % (Auto) 0.3 (0.0-0.4) % Neut % (Auto) 68.7 (45-73) % Lymph % (Auto) 24.6 (20-40) % Harvey % (Auto) 5.3 (2-11) % Eos % (Auto) 0.8 (0-4) % Baso % (Auto) 0.3 (0-2) % Lymph # (Auto) 1.8 (1.2-4.9) X10*3/uL Harvey # (Auto) 0.4 (0.1-1.2) X10*3/uL Eos # (Auto) 0.1 (0.0-0.4) X10*3/uL Baso # (Auto) 0.0 (0.0-0.2) X10*3/uL Abs Immat Gran (auto) 0.02 (0.00-0.03) X10*3/uL Absolute Neuts (auto) 4.9 (2.0-8.3) x10*3/uL Absolute Nucleated RBC 0.000 (0.0-0.012) X10*3/uL Nucleated RBC % (auto) 0.0 (0.0-0.2) /100WBC Sodium 138 (135-145) mmol/L Potassium 3.8 (3.3-5.1) mmol/L Chloride 110 H (96-108) mmol/L Carbon Dioxide 19 L (22-29) mmol/L Anion Gap 13 (12-20) BUN 19 H (9-16) mg/dL Creatinine 0.70 (0.5-1.4) mg/dL Estim Creat Clear Calc 131.6 Estimated GFR > 60 Random Glucose 109 (60-115) mg/dL Calcium 9.0 D (8.4-10.2) mg/dL Magnesium 1.7 (1.6-2.6) mg/dL Total Bilirubin 0.4 (0.0-1.0) mg/dL AST 23 (5-31) U/L ALT 23 (0-31) U/L Alkaline Phosphatase 81 (39-117) U/L Troponin I High Sens < 2.7 (<3.5-17.0) ng/L Total Protein 7.8 (6.5-8.0) g/dL Albumin 4.2 (3.5-5.0) g/dL Lipase 31 (8-78) U/L Beta HCG, Quant < 2 mIU/mL Influenza Type A (PCR) NEGATIVE (Negative) Influenza Type B (PCR) NEGATIVE (Negative) RSV RNA Qual (PCR) NEGATIVE (Negative) SARS-CoV-2 RNA (RT-PCR) NEGATIVE (Negative) Independent Interpretation I performed an independent interpretation of an: EKG and Plain X-Ray Interpretation: EKG showing normal sinus rhythm, rate 68 beats per minute, QT 388, QTC 412, no acute ischemic changes or ST elevation Chest x-ray without infiltrate or consolidation Radiology Impression Discussion of test interpretation with radiology: I have reviewed the radiologist's reading. Radiologist Impression: Procedure(s): XR chest 2V Accession Number(s): [id number] cc: Clary Monroe MD; Carolin Walsh~ CLINICAL HISTORY: sob 2 view chest x-ray Comparison: None available Findings: No consolidation or effusion. Borderline low lung volumes. No pneumothorax Heart size is normal. Small Schmorl's nodes of the imaged thoracic vertebrae. IMPRESSION: No consolidation This document has been electronically signed by: Dudley Alexandra MD on 07/16/2024 18:49:50 External Record Review External record reviewed: Inpatient record Social Determinants Patient?s care significantly limited by Social Determinants of Health including: Other Social Determinant of Health Critical Care Time Critical Care Time Critical Care Time: No Discharge Plan Discharge Clinical Impression: Shortness of breath Patient Disposition: Home, Self-Care Instructions: How Your Lungs Work (ED) Additional Instructions: You were evaluated in the Emergency Department today for shortness of breath. Your evaluation has shown no signs of medical conditions requiring emergent intervention at this time, however I recommend that you follow up with your primary care provider or your sales producer as soon as possible for further testing as an outpatient. If you do not have one, a referral has been provided. Please call them to make an appointment, they will not call you. Return to the Emergency Department if you experience worsening or uncontrolled chest pain, shortness of breath, light headedness, feeling faint, nausea, vomiting, or any other concerning symptoms. Prescriptions: No Action ketorolac 10 mg tablet 10 mg PO TID PRN (Reason: pain) 5 Days Qty: 15 0RF sulfamethoxazole-trimethoprim [Bactrim DS] 800-160 mg tablet 1 tab PO Q12H 7 Days Qty: 14 0RF cephalexin 500 mg capsule 500 mg PO QID 7 Days Qty: 28 0RF ondansetron 4 mg tablet,disintegrating 4 mg PO Q8H PRN (Reason: nausea and vomiting) Qty: 9 0RF lidocaine 5 % adhesive patch,medicated 1 patch topical DAILY Qty: 15 0RF Rx Instructions: leave on most painful area for up to 12 hrs cyclobenzaprine 5 mg tablet 5 mg PO TID PRN (Reason: muscle spasm) Qty: 10 0RF Referrals: [facility] [Provider Group] Clary Monroe MD [Primary Care Provider] - Interventions: ED Discharge Assessment Last Done: 07/16/24 20:15 Discharge Date/Time: 07/16/24 20:16 Print Language: Montserratian
[2024-07-16 17:22] LABS: MANUAL DIFF FLAG NO
[2024-07-16 17:28] LABS: Basophils Percent Auto 0.3 % (0-2); Eosinophils Absolute Auto 0.1 X10*3/uL (0.0-0.4); Eosinophils Percent Auto 0.8 % (0-4); Hematocrit 36.9 % (37.0-47.0); Hemoglobin 12.6 g/dl (12.0-16.0); Imm Gran Abs Auto 0.02 X10*3/uL (0.00-0.03); Imm Gran Pct Auto 0.3 % (0.0-0.4); Lymphocytes Absolute Auto 1.8 X10*3/uL (1.2-4.9); Lymphocytes Percent Auto 24.6 % (20-40); Mean Corpuscular HGB Conc 34.1 g/dl (31.0-35.0); Mean Corpuscular Hemoglobin 29.9 pg (27.0-33.0); Mean Corpuscular Volume 87.4 fL (80.0-98.0); Mean Platelet Volume 9.6 fL (9.4-12.3); Monocytes Absolute Auto 0.4 X10*3/uL (0.1-1.2); Monocytes Percent Auto 5.3 % (2-11); Neutrophils Absolute Auto 4.9 x10*3/uL (2.0-8.3); Neutrophils Percent Auto 68.7 % (45-73); Platelet Count 264 X10*3/uL (160-400); Red Blood Count 4.22 X10*6/uL (4.20-5.50); Red Cell Distribution Width 13.2 % (11.0-16.0); White Blood Count 7.2 X10*3/uL (4.8-10.8)
[2024-07-16 17:53] LABS: Alanine Aminotransferase 23 U/L (0-31); Albumin Level 4.2 g/dL (3.5-5.0); Alkaline Phosphatase 81 U/L (39-117); Anion Gap 13 (12-20); Aspartate Amino Transferase 23 U/L (5-31); Bilirubin Total 0.4 mg/dL (0.0-1.0); Blood Urea Nitrogen 19 mg/dL (9-16); Carbon Dioxide 19 mmol/L (22-29); Chloride 110 mmol/L (96-108); Creatinine Clr Calc Pharmacy 131.6; Estimated Glomerular Filt Rate > 60; Glucose Random 109 mg/dL (60-115); Lipase 31 U/L (8-78); Magnesium 1.7 mg/dL (1.6-2.6); Potassium 3.8 mmol/L (3.3-5.1); Sodium 138 mmol/L (135-145); Total Protein 7.8 g/dL (6.5-8.0)
[2024-07-16 17:54] LABS: Troponin-I High Sensitivity < 2.7 ng/L (<3.5-17.0)
[2024-07-16 17:55] LABS: HCG Quantitative < 2 mIU/mL
[2024-07-16 18:09] LABS: Influenza A PCR NEGATIVE (Negative); Influenza B PCR NEGATIVE (Negative); Resp Syncy Virus RNA Qual PCR NEGATIVE (Negative); SARS COV2 PCR INHOUSE NEGATIVE (Negative)
--- NOTE | 2024-07-16 19:40 | ECG_ITS ---
Test Reason : SOB Blood Pressure : */* mmHG Vent. Rate : 68 BPM Atrial Rate : 68 BPM P-R Int : 154 ms QRS Dur : 76 ms QT Int : 388 ms P-R-T Axes : 38 2 2 degrees QTcB Int : 412 ms Normal sinus rhythm Possible Left atrial enlargement Borderline ECG No previous ECGs available Referred By: Carolin Walsh Electronically Signed By: JOANA VELASQUEZ MD
[2024-07-16 19:41] VITALS: BP 134/72; PULSE 77; RESP 18; TEMP 37.1; O2SAT 97
--- OUTSIDE RECORDS SUMMARY | 2024-07-16 20:00 | XMS_ITS | Encounter Summary ---
Author Organization [employer] Address [address] [place] [address] Care Team Providers Care Performing Artist Name Role Phone Clary Monroe MD Primary Care Provider [phone] Trudi Jeffries Unavailable Any Rebolledo OD Unavailable [phone] Encounter Details Date Type Department Care Team (Late st Contact Info) Description 07/16/2024 Orders Only GENERIC EXTERNAL DATA DEPARTMENT Provider, Generic External Data Social History Tobacco Use Types Packs/Day Years Used Date Smoking Tobacco: Never Passive Smoke Exposure: Never Smokeless Tobacco: Never Alcohol Use Standard Drinks/Week Comments Yes 0 (1 standard drink = 0.6 oz pur e alcohol) Depression Answer Date Recorded Patient Health Questionnaire-9 Score 9 07/05/2024 Patient Health Questionnaire-9 Score 9 07/05/2024 Last PHQ-9: Questionnaire Data Not on file 0 07/05/2024 Housing Stability Answer Date Recorded What is your housing situation today? I have yelena flores 01/15/[address] you li ve. Do you have problems with any of the following? None of the above 01/15/2024 Food Insecurity Answer Date Recorded Within the past 12 months, y ou worried that your food would run out before you got money to buy more: Never True 01/15/2024 Within the past 12 months,th e food you bought just didn't last and you didn't have enough money to get more: Never True 10/2023 Transportation Answer Date Recorded In the past 12 months, has l ack of transportation kept you from medical appts, meetings, work or from getting things needed for daily living? No 01/15/2024 Utilities Answer Date Recorded In the past 12 months, has t he electric, gas, oil or water company threatened to shut off services in your home? No 01/15/2024 Depression Answer Date Recorded Patient Health Questionnaire-2 Score 0 07/05/2024 Internet Access Answer Date Recorded Internet Access Q1 Yes 01/15/2024 Internet Access Q2 Not on file 01/15/2024 Comments Unknown Sex and Gender Information Value Date Recorded Sex Assigned at Female 03/10/2022 10:39 AM EDT Legal Sex Female 10:39 AM EDT Gender Identity Female 03/10/2022 10:39 AM EDT Sexual Orientation Straight 03/10/2022 10 :39 AM EDT documented as of this encounter Plan of Treatment Not on file documented as of this encounter Procedures Procedure Name Priority Date/Time Associated Diagnosis Comments XR CHEST 2 VIEWS Routine 07/16/2024 6:49 PM EST CBC WITH AUTO DIFFERENTIAL Routine 07/16/2024 5:18 PM EST HIGH SENSITIVITY TROPONIN I Routine 07/16/2024 5:17 PM EST SARS COV2/INFLUENZA A/B AND RSV RNA QL NAAT Routine 07/16/2024 5:17 PM EST HCG, TOTAL, QN Routine 07/16/2024 5:17 PM EST MAGNESIUM Routine 07/16/2024 5:17 PM EST LIPASE Routine 07/16/2024 5:17 PM EST COMPREHENSIVE METABOLIC PANEL Routine 07/16/2024 5:17 PM EST documented in this encounter Results * XR Chest 2 Views (07/16/2024 6:49 PM EST) Anatomical Region Laterality Modality Chest Radiographic Christina ging 07/16/2024 6:49 PM EST Narrative 07/16/2024 6:51 PM EST ? [facility] ?[address] ?[place] [address] ?XRay Report ? Signed ? Patient: Surekha Grady,Christine ?MR#: [id number] ?? [id number] ? : 1990 ?Acct:[id number] ? Age/Sex: 34 / F ?ADM Date: 07/16/24 ? Loc: HO.ED ? Attending Dr: ? Ordering Physician: Carolin Walsh ?? Date of Service: 07/16/24 ?? Procedure(s): XR chest 2V ?? Accession Number(s): [id number] ? cc: Clary Monroe MD; Carolin Walsh ? CLINICAL HISTORY: sob ? 2 view chest x-ray ? Comparison: None available ? Findings: ?? No consolidation or effusion. Borderline low lung volumes. No pneumothorax ?? Heart size is normal. ?? Small Schmorl's nodes of the imaged thoracic vertebrae. ? IMPRESSION: ?? No consolidation ? This document has been electronically signed by: Dudley Alexandra MD on ?? 07/16/2024 18:49:50 ? Dictated By: ?Dudley Alexandra MD ? Signed By: ?<Electronically signed by Dudley Alexandra MD in OV> ? 07/16/24 1851 ? DD/ 48 ? TD/TT: 07/16/241848 ? Organizational Development Manager: ? Procedure Note Benitez Niño - 07/16/2024 [place] [address] XRay Report Signed Patient: Nataliya Mart#: [id number] : 1990Acct:[id number] Age/Sex: 34 / FADM Date: 07/16/24 Loc: HO.ED Attending Dr: Ordering Physician: Carolin Walsh Date of Service: 07/16/24 Procedure(s): XR chest 2V Accession Number(s): [id number] cc: Clary Monroe MD; Carolin Walsh CLINICAL HISTORY: sob 2 view chest x-ray Comparison: None available Findings: No consolidation or effusion. Borderline low lung volumes. No pneumothorax Heart size is normal. Small Schmorl's nodes of the imaged thoracic vertebrae. IMPRESSION: No consolidation This document has been electronically signed by: Dudley Alexandra MD on 07/16/2024 18:49:50 Dictated By: Dudley Alexandra MD Signed By: <Electronically signed by Dudley Alexandra MD in OV> 07/16/241850 DD/ 48 TD/TT: 07/16/241848 Organizational Development Manager: [facility] External Provider IMG XR PROCEDURES Final Result * (ABNORMAL) CBC auto differential (07/16/2024 5:18 PM EST) White Blood Count 7.2 4.8 - 10.8 X10*3/uL [facility] Red Blood Count 4.22 4.20 - 5.50 X10*6/uL [facility] Hemoglobin 12.6 12.0 - 16.0 g/dl [facility] Hematocrit 36.9(L) 37.0 - 47.0 % [facility] Mean Corpuscular Volume 87.4 80.0 - 98.0 fL [facility] Mean Corpuscular Hemoglobin 29.9 27.0 - 33.0 pg [facility] Mean Corpuscular HGB Conc 34.1 31.0 - 35.0 g/dl [facility] Red Cell Distribution Width 13.2 11.0 - 16.0 % [facility] Platelet Count 264 160 - 400 X10*3/uL [facility] Mean Platelet Volume 9.6 9.4 - 12.3 fL [facility] Neutrophils Percent Auto 68.7 45 - 73 % [facility] Imm Gran Pct Auto 0.3 0.0 - 0.4 % [facility] Lymphocytes Percent Auto 24.6 20 - 40 % [facility] Monocytes Percent Auto 5.3 2 - 11 % [facility] Eosinophils Percent Auto 0.8 0 - 4 % [facility] Basophils Percent Auto 0.3 0 - 2 % [facility] NRBC Pct Auto 0.0 0.0 - 0.2 /100WBC [facility] Neutrophils Absolute Auto 4.9 2.0 - 8.3 x10*3/uL [facility] Imm Gran Abs Auto 0.02 0.00 - 0.03 X10*3/uL [facility] Lymphocytes Absolute Auto 1.8 1.2 - 4.9 X10*3/uL [facility] Monocytes Absolute Auto 0.4 0.1 - 1.2 X10*3/uL [facility] Eosinophils Absolute Auto 0.1 0.0 - 0.4 X10*3/uL [facility] Basophils Absolute Auto 0.0 0.0 - 0.2 X10*3/uL [facility] NRBC Abs Auto 0.000 0.0 - 0.012 X10*3/uL [facility] 07/16/2024 5:18 PM EST 07/16/2024 5:20 PM EST us Generic External Data Provider LAB BLOOD ORDERAB LES Final Result [facility] [address] [place] [phone] * SARS-CoV-2 RNA, Influenza A/B, and RSV RNA, Ql NAAT (07/16/2024 5:17 PM EST) Influenza A PCR NEGATIVE Negative [facility] Influenza B PCR NEGATIVE Negative [facility] Resp Syncy Virus RNA Qual PCR NEGATIVE Negative [facility] SARS COV2 PCR NEGATIVE Negative [facility] Comment:All test results mus t be correlated with clinical findings.Negative results do not preclude SARS-CoV2, influenza Avirus, influenza B virus and/or RSV infectionand should not be used as the sole basis for treatment orother patient management decisions. Negative results must becombined with clinical observations, patient history, andepidemiological information.This test has not been evaluated for monitoring treatment ofinfection.This test has been authorized by the FDA under an EmergencyUse Authorization (EUA) for use by authorized laboratories.Testing performed on the [employer] GeneXpert utilizingreal-time RT-PCR.All SARS CoV2 and positive influenza A/B results arereported to [facility]. 07/16/2024 5:17 PM EST 07/16/2024 5:20 PM EST Generic External Data Provider LAB MICROBIOLOGY - GENERAL ORDERABLES Final Result Performing Organization Address [facility] Co de Phone Number [facility] [address] [place] [phone] * hCG, Total, Quantitative (07/16/2024 5:17 PM EST) HCG Quantitative <2 mIU/mL [facility] Comment:Weeks post LMP Appro ximate hCG(Last Menstrual Period) Range (mIU/ml)3 - 4 weeks 9 - 1304 - 5 weeks 75 - 2,6005 - 6 weeks 850 - 20,8006 - 7 weeks 4000 - 100,2007 - 12 weeks 11,500 - 289,17350 - 16 weeks 18,300 - 137,10401 - 29 weeks (2nd trimester) 1,400 - 53,75255 - 41 weeks (3rd trimester) 940 - 60,000The Roman B- hCG assay is used for the early detection ofpregnancy; it cannot be used to diagnose any conditionunrelated to . If a B-hCG level is not supportedby the clinical evidence, results should be confirmed by analternative method (qualitative urine hCG, for example). 07/16/2024 5:17 PM EST 07/16/2024 5:20 PM EST Generic External Data Provider LAB BLOOD ORDERAB LES Final Result Performing Organization Address [facility]/ZIP Co de Phone Number [facility] [address] [place] [address] [phone] * High Sensitivity Troponin I (07/16/2024 5:17 PM EST) TROPONIN I HIGH SENSITIVITY <2.7 <3.5 - 17.0 ng/L [facility] Comment:The Roman high sens itivity Troponin-I results should beused in conjunction with other diagnostic information suchas ECG, clinical observations and information, and patientsymptoms to aid in the diagnosis of AL. 07/16/2024 5:17 PM EST 07/16/2024 5:20 PM EST us Generic External Data Provider LAB BLOOD ORDERAB LES Final Result Performing Organization Address [facility]/ZIP Co de Phone Number [facility] [address] [place] [phone] * Lipase (07/16/2024 5:17 PM EST) Pathologist [facility] Lipase 31 8 - 78 U/L [facility] 07/16/2024 5:17 PM EST 07/16/2024 5:20 PM EST us Generic External Data Provider LAB BLOOD ORDERAB LES Final Result Performing Organization Address [facility] Co de Phone Number [facility] [address] [place] [phone] * Magnesium (07/16/2024 5:17 PM EST) Pathologist [facility] Magnesium 1.7 1.6 - 2.6 mg/dL [facility] 07/16/2024 5:17 PM EST 07/16/2024 5:20 PM EST us Generic External Data Provider LAB BLOOD ORDERAB LES Final Result Performing Organization Address [facility] Co de Phone Number [facility] [address] [place] [phone] * (ABNORMAL) Comprehensive Metabolic Panel (07/16/2024 5:17 PM EST) Pathologist [facility] Sodium 138 135 - 145 mmol/L [facility] Potassium 3.8 3.3 - 5.1 mmol/L [facility] Chloride 110(H) 96 - 108 mmol/L [facility] Carbon Dioxide 19(L) 22 - 29 mmol/L [facility] Anion Gap 13 12 - 20 [facility] Urea Nitrogen (BUN) 19(H) 9 - 16 mg/dL [facility] Creatinine, Serum 0.70 0.5 - 1.4 mg/dL [facility] Creatinine Clr Calc Pharmacy 131.6 [facility] Comment:Provided height and weight: 172.72 cm,91.7 kg.eGFR (calculated from the MDRD study equation) and eCrCl(calculated from the Cockcroft-Gault equation) are based ondifferent parameters and may not yield comparable results.If eCrCl result is absurd, please check patient'sheight/weight. Estimated Glomerular Filt Rate >60 [facility] Comment:Chronic Kidney Disea se: Estimated GFR < 60 mL/min/[id number] Kidney Disease: Estimated GFR < 15 mL/min/1.73m2 Glucose 109 60 - 115 mg/dL [facility] Calcium 9.0 8.4 - 10.2 mg/dL [facility] Bilirubin, Total 0.4 0.0 - 1.0 mg/dL [facility] Aspartate Amino Transferase 23 5 - 31 U/L [facility] Alanine Aminotransferase 23 0 - 31 U/L [facility] Total Protein 7.8 6.5 - 8.0 g/dL [facility] Albumin Level 4.2 3.5 - 5.0 g/dL [facility] Alkaline Phosphatase 81 39 - 117 U/L [facility] 07/16/2024 5:17 PM EST 07/16/2024 5:20 PM EST us Generic External Data Provider LAB BLOOD ORDERAB LES Final Result [facility] [address] [place] [phone] documented in this encounter Visit Diagnoses Not on filedocumented in this encounter Additional Health Concerns Assessment Noted Time PHQ-9 Depression Total Score: 9 07/05/19 25 1:33 PM EST documented as of this encounter Care Teams Performing Artist Relationship Specialty Start Date End Date Clary Monroe MD [address] [place] [phone] PCP - General Family Medicine 11/18/23 Trudi Jeffries [address] [place] [address] [place] [phone] Orthopaedic Surgery 06/06/24 Any Rebolledo OD [address] [place] [phone] Optometry 06/06/24 documented as of this encounter
--- OUTSIDE RECORDS SUMMARY | 2024-07-16 20:00 | XMS_ITS | Encounter Summary ---
Author Organization [employer] Address [address] [facility] [address] [place] [address] Care Team Providers Care Branch Examiner Name Role Phone Clary Monroe MD Primary Care Provider [phone] Trudi Jeffries Unavailable Freddieiliana Any OD Unavailable [phone] Reason for Visit * Reason Onset Date Comments Appointment Request 04/11/2024 Encounter Details Date Type Department Care Team ([facility] st Contact Info) Description 04/11/2024 Telephone [facility] [address] [place] [address] Clary Monroe MD [address] [place] [address] Appointment Request Social History Tobacco Use Types Packs/Day Years Used Date Smoking Tobacco: Never Passive Smoke Exposure: Never Smokeless Tobacco: Never Alcohol Use Standard Drinks/Week Comments Yes 0 (1 standard drink = 0.6 oz pur e alcohol) Depression Answer Date Recorded Patient Health Questionnaire-9 Score 0 01/15/2024 Patient Health Questionnaire-9 Score 0 01/15/2024 Last PHQ-9: Questionnaire Data Not on file 0 01/15/2024 Housing Stability Answer Date Recorded What is [...] Date Recorded Patient Health Questionnaire-2 Score 0 01/15/2024 Internet Access Answer Date Recorded Internet Access [...] on file documented as of this encounter Visit Diagnoses Not on filedocumented in this encounter Additional Health Concerns Assessment Noted Time PHQ-9 Depression Total Score: 0 01/15/20 24 11:32 AM EDT documented as of this encounter Care Teams Branch Examiner Relationship Specialty Start Date End Date Clary Monroe MD [address] [place] [address] PCP - General Family Medicine 11/18/23 Trudi Jeffries [address] [place] [address] [address] [place] [address] Orthopaedic Surgery 06/06/24 Any Rebolledo OD [address] [place] [id number] Optometry 06/06/24 documented as of this encounter
--- OUTSIDE RECORDS SUMMARY | 2024-07-16 20:00 | XMS_ITS | Encounter Summary ---
Author Organization [employer] Address [address] [facility] 7[address] [place] [address] Care Team Providers Care Fence Installer Foreman Name Role Phone Clary Monroe MD Primary Care Provider + [phone] Trudi Jeffries Unavailable Any Rebolledo OD Unavailable [phone] Encounter Details Date Type Department Care Team (Latest Contact Info) Description 05/02/2021 Abstract [facility] CONVERSIONS Dental, Provider, DDS Social History Tobacco Use Types Packs/Day Years Used Date Smoking Tobacco: Never Assessed Comments Unknown Sex and Gender Information Value Date Recorded Sex Assigned at Female 03/10/2022 10:39 AM EDT Legal Sex Female 10:39 AM EDT Gender Identity Female 03/10/2022 10:39 AM EDT Sexual Orientation Straight 03/10/2022 10 :39 AM EDT documented as of this encounter Plan of Treatment Not on file documented as of this encounter Visit Diagnoses Not on filedocumented in this encounter Care Teams Fence Installer Foreman Relationship Specialty Start Date End Date Clary Monroe MD [address] [place] [address] PCP - General Family Medicine 11/18/23 Trudi Jeffries [address] [place] [address] [place] [address] Orthopaedic Surgery 06/06/24 Any Rebolledo OD [address] [place] [id number] Optometry 06/06/24 documented as of this encounter
--- OUTSIDE RECORDS SUMMARY | 2024-07-16 20:00 | XMS_ITS | Encounter Summary ---
Author Organization [employer] Address [address] [facility] [address] [place] [address] Care Team Providers Care Motion Picture Printer Name Role Phone Clary Monroe MD Primary Care Provider [phone] Trudi Jeffries Unavailable Freddieiliana Any OD Unavailable [phone] Reason for Visit * Reason Comments Med Refill Encounter Details Date Type Department Care Team (Late st Contact Info) Description 06/29/2024 Refill [facility] [address] [place] [address] Clary Monroe MD [address] [place], [place] [id number] Neck muscle spasm Social History Tobacco Use Types Packs/Day Years [...] documented as of this encounter Visit Diagnoses Diagnosis Neck muscle spasm documented in this encounter Additional Health Concerns Assessment Noted Time PHQ-9 Depression Total Score: 0 01/15/20 24 11:32 AM EDT documented as of this encounter Care Teams Motion Picture Printer Relationship Specialty Start Date End Date Clary Monroe MD [address] [place] [address] PCP - General Family Medicine 11/18/23 Trudi Jeffries [address] [place] [address] [place] [id number] Orthopaedic Surgery 06/06/24 Any Rebolledo OD [address] [place] [id number] Optometry 06/06/24 documented as of this encounter
[2024-07-16 20:15] VITALS: BP 134/72; PULSE 77; RESP 18; TEMP 37.1; O2SAT 97
== END 2024-07-16 20:16 | disposition home or self-care (01) ==
PROVIDERS: Physician Assistant Medical; Emergency Provider Emergency Medicine Emergency Medical Services; PCP Family Medicine
DX: R06.02 Shortness of breath (principal); Z03.818 Encounter for observation for suspected exposure to other biological agents ruled out
CPT/HCPCS: 0241U; 36415; 71046; 80053; 83690; 83735; 84484; 84702; 85025; 93005; 99283; 99284

== ENCOUNTER → 2024-07-16 17:08 | Outpatient (BNV) | payer SELFPAY | PROVIDERS: PCP Family Medicine; Visit Provider Radiology Neuroradiology | DX: R06.02 Shortness of breath (principal) | CPT/HCPCS: 71046 ==

== ENCOUNTER → 2024-07-16 19:40 | Outpatient (BNV) | payer OTHER, SELFPAY | PROVIDERS: Emergency Provider Emergency Medicine Emergency Medical Services; PCP Family Medicine; Visit Provider Internal Medicine Cardiovascular Disease | DX: R06.02 Shortness of breath (principal) | CPT/HCPCS: 93010 ==

== ENCOUNTER 2024-09-18 12:12 | Emergency (ER) | payer MEDICAID, OTHER, SELFPAY ==
[2024-09-18 12:21] VITALS: BP 114/79; PULSE 72; RESP 19; TEMP 36.6; O2SAT 99; BMI 30.1
--- NOTE | 2024-09-18 12:21 | ED_ITS ---
HPI - General Adult General Chief complaint: Nausea/Vomiting/Diarrhea Stated complaint: vomiting Time Seen by Provider: 09/18/24 12:41 Source: patient and clipping marker (cameroonian) Mode of arrival: ambulatory Limitations: language barrier History of Present Illness ED Provider: FREDDY SANTANA PA-C HPI narrative: 34-year-old [place]-speaking female, A1, presents to the ED today for evaluation of nausea, vomiting, right lower quadrant abdominal discomfort x3 days. Patient states she is sexually active with her 1 partner. Does not use protection. She is not on control. Her last menstrual period was approximately 1 month ago at the beginning of August. She can not recall the exact dates. States she is currently 5 days late for her menstrual period. Denies any vaginal bleeding or vaginal discharge. Admits to sharp, pinching sensations to her right lower quadrant. Denies actual abdominal pain. Denies dysuria or hematuria. Endorses increased abdominal frequency however states she has been drinking more water than usual. Denies diarrhea, constipation. Admits to mild nausea at present. She did not Pertinent surgical history includes abdominoplasty and appendectomy. Related Data Previous Rx's ?Medication ?Instructions ?Recorded cephalexin 500 mg capsule 500 mg PO QID 7 days #28 caps 06/19/22 ketorolac 10 mg tablet 10 mg PO TID PRN pain 5 days #15 06/19/22 tabs sulfamethoxazole 800 1 tab PO Q12H 7 days #14 tabs 06/19/22 mg-trimethoprim 160 mg tablet (Bactrim DS) cyclobenzaprine 5 mg tablet 5 mg PO TID PRN muscle spasm #10 02/20/24 tabs lidocaine 5 % topical patch 1 patch topical DAILY #15 ea 02/20/24 ondansetron 4 mg disintegrating 4 mg PO Q8H PRN nausea and 02/20/24 tablet vomiting #9 tabs vits no.126-ferrous fum 1 tab PO DAILY #30 tabs 09/18/24 28 mg iron-folic acid 800 mcg tablet (Classic ) Allergies Allergy/AdvReac Type Severity Reaction Status Date / Time No Known Allergies Allergy Verified 09/18/24 12:22 Review of Systems 2 Review of Systems: Yes all other systems are reviewed and are negative PMFSH Past Medical History Attestation statement: The following information was validated with the patient. Source: old records reviewed and nursing notes reviewed Social History Social History Alcohol intake: current Alcohol intake frequency: holidays/special occasions only Patient Tobacco Use Status: Never used Tobacco Advance Directives: No Advance Directives Information Provided: No Do you have a plan to hurt others: No Plan Current occupational status: employed Current occupation: [employer] Physical Exam ED Vital Signs: Vital Signs - 24 hr 09/18/24 12:21 09/18/24 13:58 Temperature 98 F 98 F Pulse Rate 72 72 Respiratory Rate 19 19 Blood Pressure 114/79 114/79 Pulse Oximetry 99 99 Oxygen Delivery Method Room Air Room Air BMI result Body Mass Index 30.1 Vital signs stable, afebrile General: Well appearing, in no acute distress. Skin: Warm, dry, intact. No rashes or lesions. Head: Normocephalic, atraumatic. EENT: Hearing is intact b/l. Conjunctiva clear. Sclera is anicteric. PERRLA. EOM intact. Moist mucous membranes.? Cardiac: Chest wall symmetric. RRR Lungs: Normal respiratory effort without accessory muscle use. CTA bilaterally Abdomen: soft, non-tender, non-distended. No rebound tenderness or guarding. Positive BS x4. Negative McBurney point tenderness, negative Rovsing sign. Back: No midline spinous or paraspinal tenderness. No step off deformity. Ext: Upper and lower extremities atraumatic, without tenderness, deformity, swelling or erythema Neuro: AOx3. Normal speech. Ambulating with steady gait. Psych: Appropriate mood and affect. Responds appropriately to questions. Course Course Course Narrative: RME performed by Michelle Ventura PA-C. Patient is a 34 year old assigned female at presenting to the emergency department feeling generally unwell, faint, dizziness, nausea and vomiting. Patient states that she took a test that may have been positive but she isn't sure. Detailed physical exam and review of systems are deferred to the assistant plant controller. Labs and swabs ordered. Patient placed back in the waiting room pending room availability and results. Reevaluation(s) Reevaluation #1: 1400 -- CBC without leukocytosis or left shift. No anemia. H&H stable. Chemistry without acute electrolyte abnormality requiring intervention. No BRITT. Liver function WNL. Beta hCG 773. Patient is . Given right lower quadrant abdominal discomfort and sharp pains, concern for ectopic . Urine without infection. > I informed patient of her results using clinic coordinator. She tells me that she needs to leave and 10 minutes to chart picker her children as she left them at [facility] to come here for evaluation. She has only been in the ED for approximately 50 minutes. I stressed the importance of staying in the ED for ultrasound as ectopic is of concern. She is declining ultrasound at this time, states I know my pregnancies , tells me that is not happening to me . She tells me that ultrasound will harm her child and that she refuses any ultrasound prior to 8 weeks. I attempted to educate patient on safety of US. I again stressed the importance of staying for ultrasound confirmation. I discussed risks of leaving the ED without US including but not limited to infection, pain, and . Patient verbalizes understanding and is choosing to leave the ED AMA. I will be referring her to OBGYN for f/u. States she will call her PCP tomorrow morning and make the appropriate f/u appointments. Advised unysom for N/V. No episodes of vomiting in ED. Well appearing. prenatals sent to pharmacy. Medications Administered Discontinued Medications Generic Name Dose Route Start Last Admin Trade Name Freq PRN Reason Stop Dose Admin Acetaminophen 650 mg 09/18/24 13:22 09/18/24 13:27 Acetaminophen 325 Mg Tablet PO 09/18/24 13:23 650 mg ONCE ONE Administration Medical Decision Making Medical Decision Making MDM Narrative: 34-year-old [place]-speaking female, A1, presents to the ED today for evaluation of nausea, vomiting, right lower quadrant abdominal discomfort x3 days. Vital signs stable. Afebrile. Differential diagnoses: diverticulitis, diverticulosis, UTI, IUP, constipation, ectopic Abdominal exam without peritoneal signs. Unlikely appendicitis as she is status post appendectomy. No evidence of acute abdomen at this time. Well appearing. Low suspicion for acute hepatobiliary disease (including acute cholecystitis), acute infectious processes (pneumonia, hepatitis, pyelonephritis, PID, TOA), vascular catastrophe, bowel obstruction or viscus perforation, ovarian cyst/ rupture/ torsion. Presentation not consistent with other acute, emergent causes of abdominal pain at this time. Plan: labs, UA, pain control Differential Diagnosis Differential Diagnoses: The differential diagnosis associated with the presentation includes As above Admission/Observation not indicated Lab Data MDM Lab Attestation statement: I reviewed the patient's lab results. As above 09/18/24 12:37 09/18/24 12:37 Labs: Lab Results 09/18/24 Range/Units 12:37 WBC 5.6 (4.8-10.8) X10*3/uL RBC 4.30 (4.20-5.50) X10*6/uL Hgb 12.4 (12.0-16.0) g/dl Hct 37.8 (37.0-47.0) % MCV 87.9 (80.0-98.0) fL MCH 28.8 (27.0-33.0) pg MCHC 32.8 (31.0-35.0) g/dl RDW 13.1 (11.0-16.0) % Plt Count 238 (160-400) X10*3/uL MPV 10.1 (9.4-12.3) fL Immature Gran % (Auto) 0.2 (0.0-0.4) % Neut % (Auto) 59.2 (45-73) % Lymph % (Auto) 32.3 (20-40) % [place] % (Auto) 7.0 (2-11) % Eos % (Auto) 0.9 (0-4) % Baso % (Auto) 0.4 (0-2) % Lymph # (Auto) 1.8 (1.2-4.9) X10*3/uL [place] # (Auto) 0.4 (0.1-1.2) X10*3/uL Eos # (Auto) 0.1 (0.0-0.4) X10*3/uL Baso # (Auto) 0.0 (0.0-0.2) X10*3/uL Abs Immat Gran (auto) 0.01 (0.00-0.03) X10*3/uL Absolute Neuts (auto) 3.3 (2.0-8.3) x10*3/uL Absolute Nucleated RBC 0.000 (0.0-0.012) X10*3/uL Nucleated RBC % (auto) 0.0 (0.0-0.2) /100WBC Sodium 138 (135-145) mmol/L Potassium 3.9 (3.3-5.1) mmol/L Chloride 109 H (96-108) mmol/L Carbon Dioxide 19 L (22-29) mmol/L Anion Gap 14 (12-20) BUN 7 L (9-16) mg/dL Creatinine 0.64 (0.5-1.4) mg/dL Estim Creat Clear Calc 142.5 Estimated GFR > 60 Random Glucose 89 (60-115) mg/dL Calcium 9.1 (8.4-10.2) mg/dL Magnesium 1.9 (1.6-2.6) mg/dL Total Bilirubin 0.7 (0.0-1.0) mg/dL AST 23 (5-31) U/L ALT 21 (0-31) U/L Alkaline Phosphatase 60 (39-117) U/L Total Protein 7.3 (6.5-8.0) g/dL Albumin 4.3 (3.5-5.0) g/dL Beta HCG, Quant 773 mIU/mL Urine Color Yellow Urine Appearance Clear Urine pH 7.0 (5.0-9.0) Ur Specific [place] 1.015 (1.005-1.025) Urine Protein Negative (Neg-Trace) mg/dL Urine Glucose (UA) Negative (Negative) mg/dL Urine Ketones Negative (Negative) mg/dL Urine Blood Negative (Negative) Urine Nitrite Negative (Negative) Ur Leukocyte Esterase Negative (Negative) Influenza Type A (PCR) NEGATIVE (Negative) Influenza Type B (PCR) NEGATIVE (Negative) RSV RNA Qual (PCR) NEGATIVE (Negative) SARS-CoV-2 RNA (RT-PCR) NEGATIVE (Negative) External Record Review External record reviewed: Inpatient record Prescription Management I considered prescription management with: Other ( vitamin) Social Determinants Patient?s care significantly limited by Social Determinants of Health including: Other Social Determinant of Health Critical Care Time Critical Care Time Critical Care Time: No Discharge Plan Discharge Clinical Impression: Patient Disposition: Left Against Medical Advice Instructions: (ED) Additional Instructions: You were evaluated in the ED today for nausea, vomiting and abdominal discomfort. Your hormone is positive - your level is 773 which correlates to 4-5 weeks . Given your right lower abdominal discomfort, ultrasound is recommended to rule out ectopic ( outside of the uterus). If an ectopic continues to grow, this can rupture your fallopian tubes and cause you to become septic and . Risks of leaving the ED today without this ultrasound were discussed with you when you verbalized understanding. You are choosing to leave the ED against medical advice. You are welcome to return at any time for further workup or treatment. Please return if you begin to experience worsening pain/discomfort, vaginal bleeding, increased vaginal discharge, intractable nausea or vomiting. Follow up with your outpatient providers as soon as possible. I have provided you with a referral to an assistant activities director doctor. Call them to establish care. They will not call you. You may trial [id number] Unisom for nausea or vomiting. In the case of an emergency call 911. Prescriptions: New Classic 28 mg iron- 800 mcg tablet 1 tab PO DAILY Qty: 30 0RF No Action ketorolac 10 mg tablet 10 mg PO TID PRN (Reason: pain) 5 Days Qty: 15 0RF sulfamethoxazole-trimethoprim [Bactrim DS] 800-160 mg tablet 1 tab PO Q12H 7 Days Qty: 14 0RF cephalexin 500 mg capsule 500 mg PO QID 7 Days Qty: 28 0RF ondansetron 4 mg tablet,disintegrating 4 mg PO Q8H PRN (Reason: nausea and vomiting) Qty: 9 0RF lidocaine 5 % adhesive patch,medicated 1 patch topical DAILY Qty: 15 0RF Rx Instructions: leave on most painful area for up to 12 hrs cyclobenzaprine 5 mg tablet 5 mg PO TID PRN (Reason: muscle spasm) Qty: 10 0RF Referrals: [facility] [Provider Group] Clary Monroe MD [Primary Care Provider] - Stand Alone Forms: Against Medical Advice Interventions: ED Discharge Assessment Last Done: 09/18/24 13:58 Discharge Date/Time: 09/18/24 13:59 Print Language: [place]
[2024-09-18 13:10] LABS: MANUAL DIFF FLAG NO
[2024-09-18 13:11] LABS: Basophils Percent Auto 0.4 % (0-2); Eosinophils Absolute Auto 0.1 X10*3/uL (0.0-0.4); Eosinophils Percent Auto 0.9 % (0-4); Hematocrit 37.8 % (37.0-47.0); Hemoglobin 12.4 g/dl (12.0-16.0); Imm Gran Abs Auto 0.01 X10*3/uL (0.00-0.03); Imm Gran Pct Auto 0.2 % (0.0-0.4); Lymphocytes Absolute Auto 1.8 X10*3/uL (1.2-4.9); Lymphocytes Percent Auto 32.3 % (20-40); Mean Corpuscular HGB Conc 32.8 g/dl (31.0-35.0); Mean Corpuscular Hemoglobin 28.8 pg (27.0-33.0); Mean Corpuscular Volume 87.9 fL (80.0-98.0); Mean Platelet Volume 10.1 fL (9.4-12.3); Monocytes Absolute Auto 0.4 X10*3/uL (0.1-1.2); Neutrophils Absolute Auto 3.3 x10*3/uL (2.0-8.3); Neutrophils Percent Auto 59.2 % (45-73); Platelet Count 238 X10*3/uL (160-400); Red Cell Distribution Width 13.1 % (11.0-16.0); White Blood Count 5.6 X10*3/uL (4.8-10.8)
[2024-09-18 13:12] LABS: Appearance Urine Clear; Color Urine Yellow; Glucose Urine UA Negative (Negative); Leukocyte Esterase Urine Negative (Negative); Nitrite Urine Negative (Negative); Specific Gravity - Urine 1.015 (1.005-1.025); Urine Blood Negative (Negative); Urine Ketones Negative (Negative); Urine Protein Negative (Neg-Trace)
[2024-09-18] MEDS: Acetaminophen 325 MG TABLET 650 MG PO (13:27)
[2024-09-18 13:31] LABS: Alanine Aminotransferase 21 U/L (0-31); Albumin Level 4.3 g/dL (3.5-5.0); Alkaline Phosphatase 60 U/L (39-117); Anion Gap 14 (12-20); Aspartate Amino Transferase 23 U/L (5-31); Bilirubin Total 0.7 mg/dL (0.0-1.0); Blood Urea Nitrogen 7 mg/dL (9-16); Calcium 9.1 mg/dL (8.4-10.2); Carbon Dioxide 19 mmol/L (22-29); Chloride 109 mmol/L (96-108); Creatinine Clr Calc Pharmacy 142.5; Estimated Glomerular Filt Rate > 60; Glucose Random 89 mg/dL (60-115); HCG Quantitative 773 mIU/mL; Magnesium 1.9 mg/dL (1.6-2.6); Potassium 3.9 mmol/L (3.3-5.1); Sodium 138 mmol/L (135-145); Total Protein 7.3 g/dL (6.5-8.0)
[2024-09-18 13:47] LABS: Influenza A PCR NEGATIVE (Negative); Influenza B PCR NEGATIVE (Negative); Resp Syncy Virus RNA Qual PCR NEGATIVE (Negative); SARS COV2 PCR INHOUSE NEGATIVE (Negative)
[2024-09-18 13:58] VITALS: BP 114/79; PULSE 72; RESP 19; TEMP 36.6; O2SAT 99
== END 2024-09-18 13:59 | disposition left against medical advice (07) ==
PROVIDERS: Physician Assistant Medical; Emergency Provider Emergency Medicine Emergency Medical Services; PCP Family Medicine
DX: R11.2 Nausea with vomiting, unspecified (principal); R10.31 Right lower quadrant pain; R10.2 Pelvic and perineal pain; Z03.818 Encounter for observation for suspected exposure to other biological agents ruled out
CPT/HCPCS: 0241U; 80053; 81003; 83735; 84702; 85025; 99283

== ENCOUNTER 2025-03-27 18:50 | Emergency (ER) | payer MEDICAID, SELFPAY ==
--- NOTE | ~2025-03-27 | US_ITS ---
CLINICAL HISTORY: 7 Months Preg; Decreased Movement OB Ultrasound Transabdominal Comparison: None provided Findings: Estimated gestational age by today's ultrasound: 31 weeks, 6 days Estimated date of delivery by today's ultrasound: 05/23/2025 Previously established gestational age: Not applicable Fetus is in cephalic position. Biometrics: FL: 31 weeks, 6 days HL: 31 weeks, 5 days Cardiac activity: 143 bpm. Impression: Single intrauterine gestation estimated at 31 weeks, 6 days by today's ultrasound criteria. This document has been electronically signed by: Karthikeyan Giang MD on 03/27/2025 22:58:03
[2025-03-27 18:56] VITALS: BP 114/58; PULSE 82; RESP 18; O2SAT 97; BMI 36.2
--- NOTE | 2025-03-27 18:58 | ED_ITS ---
HPI - General Adult General Chief complaint: General Medical Stated complaint: 7 mos preg unable to feel baby move Time Seen by Provider: 03/27/25 21:27 Source: patient and family Mode of arrival: ambulatory Limitations: no limitations and language barrier History of Present Illness ED Provider: Torres BORDEN HPI narrative: The patient is a 34-year-old female presenting to the ED reporting she is currently approximately 7 weeks with a due date of 05/23/2025. Patient reports she has had no previous complications with this , is currently followed by her OBGYN Kimberley Peralta out of [facility]. Patient reports she has not felt the baby move since yesterday, attempted eating ice cream and other sugary foods without increased movement. Patient denies associated fever/chills, nausea, vomiting, dysuria, hematuria, vaginal discharge, vaginal bleeding, paris of fluids, urge to push, or other acute somatic complaint. Related Data Previous Rx's ?Medication ?Instructions ?Recorded cephalexin 500 mg capsule 500 mg PO QID 7 days #28 cap s 06/19/22 ketorolac 10 mg tablet 10 mg PO TID PRN pain 5 days #15 06/19/22 tabs sulfamethoxazole 800 1 tab PO Q12H 7 days #14 tab s 06/19/22 mg-trimethoprim 160 mg tablet (Bactrim DS) cyclobenzaprine 5 mg tablet 5 mg PO TID PRN muscle spa sm #10 02/20/24 tabs lidocaine 5 % topical patch 1 patch topical DAILY #15 ea 02/20/24 ondansetron 4 mg disintegrating 4 mg PO Q8H PRN nausea and 02/20/24 tablet vomiting #9 tabs vits no.126-ferrous fum 1 tab PO DAILY #30 ta bs 09/18/24 28 mg iron-folic acid 800 mcg tablet (Classic ) Allergies Allergy/AdvReac Type Severity Reaction Status Date / Time No Known Allergies Allergy Verified 03/27/25 18:59 Review of Systems Review of Systems: Yes all other systems are reviewed and are negative [facility] Social History Social History Alcohol intake: never Patient Tobacco Use Status: Never used Tobacco Smoked in Last 30 Days: No Use of substances other than those prescribed or required for medical reasons: No Advance Directives: No Advance Directives Information Provided: No Do you have a plan to hurt others: No Plan Patient : Yes Current occupational status: employed Current occupation: [employer] Physical Exam ED Vital Signs: Vital Signs - 24 hr 03/27/25 18:56 03/27/25 19:15 Pulse Rate 82 82 Respiratory Rate 18 16 Blood Pressure 114/58 L 111/65 Pulse Oximetry 97 96 Oxygen Delivery Method Room Air Room Air BMI result Body Mass Index 36.2 CONSTITUTIONAL: The patient appears non-toxic, well nourished and in no acute distress. Vital signs as documented. HEAD: Atraumatic, normocephalic. EYES: EOMs grossly intact, pupils equal, conjunctiva clear, no exudate. ENT: Nares patent, no discharge. Airway patent, no audible stridor, visible mucosa is pink and moist without noted lesions. NECK: trachea is midline, no obvious masses or gross abnormalities. CHEST: Symmetric movement, normal appearance. LUNGS: Non-labored work of breathing. CARDIAC: No evidence of hypoperfusion. ABDOMEN: Gravid abdomen consistent with stated gestation, no tenderness x4 quadrants. : Deferred. EXTREMITIES: Moves all extremities spontaneously without reported pain. No obvious injury or deformity noted. NEURO: Alert and oriented x3, CN II-XII appear grossly intact. Cerebellar Functioning grossly intact. Speech clear and appropriate. SKIN: Warm, dry, color appropriate. No rashes or lesions noted. Course Course Course Narrative: RmE: 34-year-old female several months hit ED for not feeling baby since last night. Patient denies abdominal pain vaginal bleeding nausea vomiting. Patient to be brought back to the ED immediately Medical Decision Making Medical Decision Making MDM Narrative: 9:47 PM 03/27/2025 (Dirk BORDEN): The patient is a 34-year-old female presenting to the ED reporting she is currently approximately 7 weeks with a due date of 05/23/2025. Patient reports she has had no previous complications with this , is currently followed by her OBGYN Kimberley Peralta out of [facility]. Patient reports she has not felt the baby move since yesterday, attempted eating ice cream and other sugary foods without increased movement. Patient denies associated fever/chills, nausea, vomiting, dysuria, hematuria, vaginal discharge, vaginal bleeding, paris of fluids, urge to push, or other acute somatic complaint. On exam patient has a gravid abdomen consistent with stated gestation, without associated tenderness. Bedside point of care ultrasound shows good movement with heart tones in the 140s. The patient will be sent for official ultrasound. Pending unremarkable Ob ultrasound patient will be discharged to follow up with her OBGYN. Admission/Observation Consideration of admission/observation: Escalation of care including admission/observation considered Radiology Impression Discussion of test interpretation with radiology: I have reviewed the radiologist's reading. Discharge Plan Discharge Clinical Impression: Decreased movement Qualifiers: Fetus number: single or unspecified fetus Trimester: third trimester Qualified Code(s): O36.8130 - Decreased movements, third trimester, not applicable or unspecified Patient Disposition: Home, Self-Care Instructions: Movement (ED) Additional Instructions: Nan por elegir el [facility]artamento de Emergen[facility] del [facility] [place] para laura atenci?n hoy. Afortunadamente, tanto la ecograf?a realizada en la cama julieta la oficial de hoy mostraron buenos movimientos fetales y kylah frecuencia card?marisol normal. En mark momento, no hay indicaci?n de traslado al centro de partos de laura obstetra- ginec?logo, ingreso hospitalario ni observaci?n continua en urgencias, y puede ser александр de robert a laura domicilio sin riesgo. Por favor, acuda a laura obstetra-ginec?logo para continuar con laura atenci?n . Tambi?n le recomendamos que acuda a laura m?dico de cabecera para kylah reevaluaci?n y para continuar con laura atenci?n preventiva. Si no tiene un m?dico de cabecera, llame al [facility] [place] al [phone] para que le asignen ryan. Mientras espera, puede llamar a nuestra Cl?sameer de Atenci?n sin [place] al [phone] para consultas que no elisabeth de emergencia. Por favor, regrese al departamento de emergencias si presenta un cambio grave o repentino en jamil s?ntomas, fiebre superior a 100.4 que no mejora con Tylenol o Ibuprofeno, v?mitos recurrentes o cualquier otro s?ntoma o preocupaci?n nueva o que empeore. Thank you for choosing [facility]'s Emergency Department for your care today. Thankfully your bedside and official ultrasounds today both showed good movement and a normal heart rate. At this time there is no indication for transfer to your OBGYN's labor center, admission to the hospital or continued ED observation, and it is safe to discharge you home. Please follow up with your OBGYN for continued care. Please also follow up with your primary care physician for re-evaluation and continued preventative care. If you do not have a primary care physician, please call the [facility] at [phone] to establish a new primary care physician. While waiting to establish your new primary care physician, you can call our Walk-in Care [facility] at [phone] for non-emergency needs. Please return to the emergency department if you develop a severe or sudden change in your symptoms, a fever over 100.4 that does not improve with Tylenol or Ibuprofen, recurrent vomiting, or any other new or worsening symptoms or concerns. Prescriptions: No Action ketorolac 10 mg tablet 10 mg PO TID PRN (Reason: pain) 5 Days Qty: 15 0RF sulfamethoxazole-trimethoprim [Bactrim DS] 800-160 mg tablet 1 tab PO Q12H 7 Days Qty: 14 0RF cephalexin 500 mg capsule 500 mg PO QID 7 Days Qty: 28 0RF Classic 28 mg iron- 800 mcg tablet 1 tab PO DAILY Qty: 30 0RF ondansetron 4 mg tablet,disintegrating 4 mg PO Q8H PRN (Reason: nausea and vomiting) Qty: 9 0RF lidocaine 5 % adhesive patch,medicated 1 patch topical DAILY Qty: 15 0RF Rx Instructions: leave on most painful area for up to 12 hrs cyclobenzaprine 5 mg tablet 5 mg PO TID PRN (Reason: muscle spasm) Qty: 10 0RF Referrals: Clary Monroe MD [Primary Care Provider, Family Practice] Kimberley Peralta CNM [Certified Nurse [employer], [employer]] Clinical Impression: Decreased movement Print Language: Ukrainian
[2025-03-27 19:15] VITALS: BP 111/65; PULSE 82; RESP 16; O2SAT 96
--- NOTE | 2025-03-27 21:35 | PC.NURSE ---
FHT done at this time. Rate 142
[2025-03-27 23:54] VITALS: BP 111/65; PULSE 82; RESP 16; TEMP 36.6; O2SAT 96
== END 2025-03-28 00:04 | disposition home or self-care (01) ==
PROVIDERS: Emergency Provider Emergency Medicine; PCP Family Medicine
DX: O36.8130 Decreased fetal movements, third trimester, not applicable or unspecified (principal); Z3A.31 31 weeks gestation of pregnancy
CPT/HCPCS: 76815; 99284

== ENCOUNTER → 2025-03-27 21:27 | Outpatient (BNV) | payer MEDICAID, SELFPAY | PROVIDERS: Emergency Provider Emergency Medicine; PCP Family Medicine; Visit Provider Student in an Organized Health Care Education/Training Program | DX: O36.8130 Decreased fetal movements, third trimester, not applicable or unspecified (principal); Z3A.31 31 weeks gestation of pregnancy | CPT/HCPCS: 76815 ==